=== PATIENT | male | born 1935 | race Two or more races ===

== ENCOUNTER 2018-08-20 14:07 | Observation (INO) | payer MEDICARE ==
[2018-08-20] MEDS ORDERED: PROPOFOL 1,000 MG/100 ML INFUS..BTL IV ONE (14:11)
[2018-08-20] MEDS ORDERED: FENTANYL CITRATE INJ/PF 100 MCG/2 ML AMPUL IV ONE (14:16)
--- NOTE | 2018-08-20 14:17 | ER Document Report ---
ED General - General Stated Complaint: DIFFICULTY BREATHING Time Seen by Provider: 08/20/18 14:15 Notes: Patient is a 83-year-old male with history of bipolar disorder, dementia that presents to the emergency department for chief complaint of combative behavior. History provided by EMS. Patient lives in a long term facility, apparently was rather combative was punching staff and kicking at staff and yelling, when they arrived there were not able to redirect the patient, and per their protocol to give the patient 400 mg of IM ketamine, shortly after this m edication started working, the patient became nearly apneic, was gargling, and at that point he decided to RSI the patient in the field with additional 200 mg of ketamine, and 150 mg of rocuronium. Upon arrival the patient was intubated, sedated and paralyzed. He apparently sustained an abrasion to his left arm earlier in the day, and he has a cast on his right arm, from a previous injury. No other history obtainable at this time. Past Medical History: Bipolar disorder, dementia, history of bladder cancer Past Surgical History: Cataract surgery Social History: Lives at long term facility, no current alcohol or drug use. Family History: Reviewed and noncontributory for presenting illness Allergies: Reviewed, see documented allergy list. REVIEW OF SYSTEMS: Complete review of systems is not obtainable at this time secondary to the patient being intubated. PHYSICAL EXAMINATION: Vital signs reviewed, nursing noted reviewed. GENERAL: Patient is intubated and sedated HEAD: Atraumatic, normocephalic. EYES: Eyes appear normal, sclera anicteric, conjunctiva are normal. PERRLA ENT: nares patent, ET tube in place NECK: supple without lymphadenopathy LUNGS: Breath sounds clear to auscultation bilaterally and equal. No wheezes rales or rhonchi. HEART: Regular rate and rhythm without murmurs ABDOMEN: Soft, nondistended, normoactive bowel sounds. No rebound, guarding, or rigidity. No masses appreciated. EXTREMITIES: No peripheral edema lower extremities, palpable pulses are equal bilaterally, there is a left skin tear noted on the forearm, no active bleeding, and there is a forearm cast noted on the right forearm. NEUROLOGICAL: Patient is intubated and sedated, when sedation did wean off temporarily, patient was moving all extremities. PSYCH: Sedated SKIN: Warm, Dry, normal turgor, pallor noted - Related Data Allergies/Adverse Reactions: No Known Allergies Allergy (Unverified 08/20/18 19:17) Past Medical History - Social History Smoking Status: Unknown if Ever Smoked Family History: Reviewed & Not Pertinent Physical Exam - Vital signs Vitals: Resp Pulse Ox 14 100 08/20/18 14:08 08/20/18 14:08 Course - Re-evaluation Re-evalutation: Patient seen and examined vital signs reviewed. Laboratory data and imaging were ordered as appropriate for the patient's p resenting symptoms and complaint, with consideration of any critical or life threatening conditions that may be associated with their obtained history and exam as noted above. Patient was treated with propofol for sedation, patient was previously intubated by EMS, tube is in good position, lung sounds are equal, patient is also given a single dose of fentanyl, and IV fluid bolusing for transient hypotension. Results were reviewed when available and demonstrated significant anemia with a hemoglobin of 6.7, 2 units of packed red blood cells were ordered. The patient was re-evaluated and was stable on the ventilator. I placed a call to the patient's daughter who I spoke with, regarding his current condition, she states that he was under hospice care, and being transition to it at the nursing facility, she was shocked to hear that he was intubated, and states that that would not be within his wishes, I discussed with her that we could extubate him after weaning him off of sedative medications, which she was agreeable to, I recommended doing this sooner than later, the longer he is on sedatives, the harder will be for him to be taken off the ventilator she is agreeable to this. At this point, the patient was weaned off of his propofol, he was opening eyes spontaneously, he was tucking his chin down, following commands, moving all extremities, the ET tube was removed after deflating the balloon, as well as his NG tube, patient tolerated well, was placed on nasal cannula, was breathing spontaneously. Evaluation was most consistent with acute respiratory failure, behavioral d isturbance and agitation, will admit the patient for observation, resume his medications, and monitor post extubation. Family was agreeable with plan of care. *Note is created using voice recognition software and may contain spelling, syntax or grammatical errors. Laboratory 08/20/18 08/20/1819 14:15 14:15 14:15 WBC 6.5 RBC 2.00 L Hgb 6.7 L Hct 20.2 L MCV 101 H MCH 33.5 H MCHC 33.2 RDW 22.2 H Plt Count 199 Seg Neutrophils % 79.9 H Lymphocytes % 8.0 L Monocytes % 8.4 Eosinophils % 2.9 Basophils % 0.8 Absolute Neutrophils 5.2 Absolute Lymphocytes 0.5 Absolute Monocytes 0.5 Absolute Eosinophils 0.2 Absolute Basophils 0.0 Sodium 142.6 Potassium 4.6 Chloride 112 H Carbon Dioxide 22 Anion Gap 9 BUN 49 H Creatinine 1.35 H Est GFR ( Amer) > 60 Est GFR (Non-Af Amer) 50 L Glucose 190 H POC Glucose Calcium 8.9 Total Bilirubin 1.1 Direct Bilirubin 0.2 Neonat Total Bilirubin Not Reportable Neonat Direct Bilirubin Not Reportable Neonat Indirect Bili Not Reportable AST 21 ALT 25 Alkaline Phosphatase 44 Troponin I < 0.012 Total Protein 6.2 L Albumin 3.6 Urine Color Urine Appearance Urine pH Ur Specific [place] Urine Protein Urine Glucose (UA) Urine Ketones Urine Blood Urine Nitrite Urine Bilirubin Urine Urobilinogen Ur Leukocyte Esterase Urine WBC (Auto) Urine RBC (Auto) U Hyaline Cast (Auto) Urine Bacteria (Auto) Squamous Epi Cells Auto Urine Mucus (Auto) Urine Ascorbic Acid Salicylates < 1.0 L Urine Opiates Screen Urine Methadone Screen Acetaminophen < 10 L Ur Barbiturates Screen Ur Phencyclidine Scrn Ur Amphetamines Screen U Benzodiazepines Scrn Urine Cocaine Screen U Marijuana (THC) Screen Serum Alcohol < 10 Blood Type Blood Type Confirm Antibody Screen Crossmatch 08/20/18 08/20/18 08/20/18 14:15 14:20 14:20 WBC RBC Hgb Hct MCV MCH MCHC RDW Plt Count Seg Neutrophils % Lymphocytes % Monocytes % Eosinophils % Basophils % Absolute Neutrophils Absolute Lymphocytes Absolute Monocytes Absolute Eosinophils Absolute Basophils Sodium Potassium Chloride Carbon Dioxide Anion Gap BUN Creatinine Est GFR ( Amer) Est GFR (Non-Af Amer) Glucose POC Glucose Calcium Total Bilirubin Direct Bilirubin Neonat Total Bilirubin Neonat Direct Bilirubin Neonat Indirect Bili AST ALT Alkaline Phosphatase Troponin I Total Protein Albumin Urine Color YELLOW Urine Appearance SLIGHTLY-CLOUDY Urine pH 5.0 Ur Specific [place] 1.011 Urine Protein 100 H Urine Glucose (UA) NEGATIVE Urine Ketones NEGATIVE Urine Blood SMALL H Urine Nitrite NEGATIVE Urine Bilirubin NEGATIVE Urine Urobilinogen NEGATIVE Ur Leukocyte Esterase NEGATIVE Urine WBC (Auto) 3 Urine RBC (Auto) 3 U Hyaline Cast (Auto) 11 Urine Bacteria (Auto) TRACE Squamous Epi Cells Auto <1 Urine Mucus (Auto) RARE Urine Ascorbic Acid NEGATIVE Salicylates Urine Opiates Screen NEGATIVE Urine Methadone Screen NEGATIVE Acetaminophen Ur Barbiturates Screen NEGATIVE Ur Phencyclidine Scrn NEGATIVE Ur Amphetamines Screen NEGATIVE U Benzodiazepines Scrn NEGATIVE Urine Cocaine Screen NEGATIVE U Marijuana (THC) Screen NEGATIVE Serum Alcohol Blood Type B POSITIVE Blood Type Confirm Antibody Screen NEGATIVE Crossmatch See Detail 08/20/18 08/20/18 15:15 15:20 WBC RBC Hgb Hct MCV MCH MCHC RDW Plt Count Seg Neutrophils % Lymphocytes % Monocytes % Eosinophils % Basophils % Absolute Neutrophils Absolute Lymphocytes Absolute Monocytes Absolute Eosinophils Absolute Basophils Sodium Potassium Chloride Carbon Dioxide Anion Gap BUN Creatinine Est GFR ( Amer) Est GFR (Non-Af Amer) Glucose POC Glucose 193 H Calcium Total Bilirubin Direct Bilirubin Neonat Total Bilirubin Neonat Direct Bilirubin Neonat Indirect Bili AST ALT Alkaline Phosphatase Troponin I Total Protein Albumin Urine Color Urine Appearance Urine pH Ur Specific [place] Urine Protein Urine Glucose (UA) Urine Ketones Urine Blood Urine Nitrite Urine Bilirubin Urine Urobilinogen Ur Leukocyte Esterase Urine WBC (Auto) Urine RBC (Auto) U Hyaline Cast (Auto) Urine Bacteria (Auto) Squamous Epi Cells Auto Urine Mucus (Auto) Urine Ascorbic Acid Salicylates Urine Opiates Screen Urine Methadone Screen Acetaminophen Ur Barbiturates Screen Ur Phencyclidine Scrn Ur Amphetamines Screen U Benzodiazepines Scrn Urine Cocaine Screen U Marijuana (THC) Screen Serum Alcohol Blood Type Blood Type Confirm B POSITIVE Antibody Screen Crossmatch Chest X-Ray 08/20/18 14:16 IMPRESSION: No acute finding. Tubes as described. - Vital Signs Vital signs: Temp Pulse Resp BP Pulse Ox 98.2 F 60 16 136/58 H 100 08/20/18 20:11 08/20/18 20:11 08/20/18 20:11 08/20/18 20:11 08/20/18 20:11 - Laboratory Result Diagrams: 08/20/18 14:15 08/20/18 14:15 Laboratory results interpreted by me: 08/20/18 08/20/18 08/20/18 14:15 14:15 14:15 RBC 2.00 L Hgb 6.7 L Hct 20.2 L MCV 101 H MCH 33.5 H RDW 22.2 H Seg Neutrophils % 79.9 H Lymphocytes % 8.0 L Chloride 112 H BUN 49 H Creatinine 1.35 H Est GFR (Non-Af Amer) 50 L Glucose 190 H POC Glucose Total Protein 6.2 L Urine Protein Urine Blood Salicylates < 1.0 L Acetaminophen < 10 L Crossmatch See Detail 08/20/18 08/20/18 14:20 15:20 RBC Hgb Hct MCV MCH RDW Seg Neutrophils % Lymphocytes % Chloride BUN Creatinine Est GFR (Non-Af Amer) Glucose POC Glucose 193 H Total Protein Urine Protein 100 H Urine Blood SMALL H Salicylates Acetaminophen Crossmatch - EKG Interpretation by Me Additional EKG results interpreted by me: EKG demonstrates sinus rhythm with first-degree AV block, with a ventricular rate of 76 bpm, borderline left axis deviation, QTC 468 ms, PA interval 236 ms, no evidence of acute ischemia in this EKG and no prior for comparison. Critical Care Note - Critical Care Note Total time excluding time spent on procedures (mins): 45 Comments: Critical care time 45 minutes exclusive from separate billable procedures for a patient requiring complex medical decision making, and high potential for cli nical deterioration. In a patient that came in intubated, required vent management, monitoring, and ultimately extubation, after discussion with the patient's daughter. Time spent obtaining history from patient or surrogate, discussions with consultants, development of treatment plan with patient or surrogate, evaluation of patient's response to treatment, examination of patient, ordering and performing treatments and interventions, ordering and review of laboratory studies, re-evaluation of patient's condition, ordering and review of radiographic studies and review of old charts Discharge - Discharge Clinical Impression: Combative behavior Acute respiratory failure Qualifiers: Respiratory failure complication: unspecified whether with hypoxia or hypercapnia Qualified Code(s): J96.00 - Acute respiratory failure, unspecified whether with hypoxia or hypercapnia Anemia Qualifiers: Anemia type: unspecified type Qualified Code(s): D64.9 - Anemia, unspecified Condition: Stable Disposition: ADMITTED OBSERVATION Admitting Provider: Magdi (Hospitalist) Unit Admitted: Telemetry
[2018-08-20] MEDS ORDERED: PROPOFOL 1,000 MG/100 ML INFUS..BTL IV PRN (14:27)
--- NOTE | 2018-08-20 14:46 | RADIOLOGY REPORT (SQ) ---
EXAM DESCRIPTION: CHEST SINGLE VIEW COMPLETED DATE/TIME: 08/20/2018 2:24 pm REASON FOR STUDY: post intubation COMPARISON: None. EXAM PARAMETERS: NUMBER OF VIEWS: One view. TECHNIQUE: Single frontal radiographic view of the chest acquired. RADIATION DOSE: NA LIMITATIONS: None. FINDINGS: LUNGS AND PLEURA: No opacities, masses or pneumothorax. No pleural effusion. MEDIASTINUM AND HILAR STRUCTURES: No masses. Contour normal. HEART AND VASCULAR STRUCTURES: Heart normal in size. Normal vasculature. BONES: No acute findings. HARDWARE: An endotracheal tube has its tip 5 cm above the stu. And NG tube extends to the stomach . OTHER: No other significant finding. IMPRESSION: No acute finding. Tubes as described. TECHNICAL DOCUMENTATION: JOB ID: [id number] [employer]- All Rights Reserved Reading location - IP/workstation name: [email or web address]
[2018-08-20 14:53] LABS: ABSOLUTE EOSINOPHILS # (AUTO) 0.2 10^3/uL (0.0-0.6); ABSOLUTE LYMPHOCYTES (AUTO) 0.5 10^3/uL (0.5-4.7); ABSOLUTE MONOCYTES (AUTO) 0.5 10^3/uL (0.1-1.4); ABSOLUTE NEUT (AUTO) 5.2 10^3/uL (1.7-8.2); BASOPHILS % (AUTO) 0.8 % (0-2); EOSINOPHILS % (AUTO) 2.9 % (0-6); HEMATOCRIT 20.2 % (37.9-51.0); MEAN CORPUSCULAR HEMOGLOBIN 33.5 pg (27.0-33.4); MEAN CORPUSCULAR HGB CONC 33.2 g/dL (32.0-36.0); MEAN CORPUSCULAR VOLUME 101 fl (80-97); MONOCYTES % (AUTO) 8.4 % (3-13); PLATELET COUNT 199 10^3/uL (150-450); RED CELL DISTRIBUTION WIDTH 22.2 % (11.5-14.0); SEGMENTED NEUTROPHILS % (AUTO) 79.9 % (42-78); TOTAL CELLS COUNTED % (AUTO) 100 %; WHITE BLOOD COUNT 6.5 10^3/uL (4.0-10.5)
[2018-08-20 14:57] LABS: APPEARANCE,URINE SLIGHTLY-CLOUDY; BILIRUBIN,URINE NEGATIVE (NEGATIVE); COLOR,URINE YELLOW; GLUCOSE, URINE NEGATIVE (NEGATIVE); KETONES,URINE NEGATIVE (NEGATIVE); LEUKOCYTE ESTERASE,URINE NEGATIVE (NEGATIVE); NITRITE,URINE NEGATIVE (NEGATIVE); PROTEIN,URINE 100 mg/dL (NEGATIVE); URINE SPECIFIC GRAVITY 1.011; UROBILINOGEN,URINE NEGATIVE mg/dL (<2.0)
[2018-08-20 14:57] LABS: HEMOGLOBIN 6.7 g/dL (13.5-17.0)
[2018-08-20] MEDS ORDERED: NORMAL SALINE 250 ML IV PRN (14:58)
[2018-08-20 15:10] LABS: URINE AMPHETAMINES SCREEN NEGATIVE; URINE BARBITURATES SCREEN NEGATIVE; URINE BENZODIAZEPINES SCREEN NEGATIVE; URINE COCAINE SCREEN NEGATIVE; URINE MARIJUANA (THC) SCREEN NEGATIVE; URINE METHADONE SCREEN NEGATIVE; URINE PHENCYCLIDINE SCREEN NEGATIVE
[2018-08-20 15:16] LABS: ALANINE AMINOTRANSFERASE 25 U/L (21-72); ALBUMIN 3.6 g/dL (3.5-5.0); ALKALINE PHOSPHATASE 44 U/L (38-126); ANION GAP 9 (5-19); ASPARTATE AMINO TRANSFERASE 21 U/L (17-59); BILIRUBIN,DIRECT 0.2 mg/dL (0.0-0.4); BILIRUBIN,TOTAL 1.1 mg/dL (0.2-1.3); BLOOD UREA NITROGEN 49 mg/dL (7-20); CALCIUM 8.9 mg/dL (8.4-10.2); CARBON DIOXIDE 22 mmol/L (22-30); CHLORIDE 112 mmol/L (98-107); GLUCOSE 190 mg/dL (75-110); POTASSIUM 4.6 mmol/L (3.6-5.0); SODIUM 142.6 mmol/L (137-145); TOTAL PROTEIN 6.2 g/dL (6.3-8.2)
[2018-08-20 15:18] LABS: ACETAMINOPHEN < 10 ug/mL (10-30); ALCOHOL < 10 mg/dL (NONE DETECTED); SALICYLATE < 1.0 mg/dL (2.0-20.0)
[2018-08-20] MEDS ORDERED: ZIPRASIDONE MESYLATE INJ/PF 20 MG SDV IM PRN (16:53)
[2018-08-20] MEDS ORDERED: ALBUTEROL SULFATE 0.083% NEB 2.5 MG/3 ML AMPUL NEB PRN (16:58)
[2018-08-20] MEDS ORDERED: MAGNESIUM HYDROXIDE SUSP 30 ML UDCUP PO PRN (16:58)
[2018-08-20] MEDS ORDERED: PROMETHAZINE HCL INJ 25 MG/1 ML VIAL IV PRN (16:58)
[2018-08-20] MEDS ORDERED: ACETAMINOPHEN 650 MG SUPP.RECT PR PRN (16:58)
[2018-08-20] MEDS ORDERED: ACETAMINOPHEN 325 MG TABLET PO PRN (16:58)
[2018-08-20] MEDS ORDERED: MAG HYDROX/AL HYDROX/SIMETH SUSP 30 ML UDCUP PO PRN (16:58)
[2018-08-20] MEDS ORDERED: ONDANSETRON HCL INJ/PF 4 MG/2 ML SDV IV PRN (16:58)
--- NOTE | 2018-08-20 17:20 | PDOC H&P ---
History of Present Illness Admission Date/PCP: 08/20/18 16:50 TAYLER PATEL MD Patient complains of: Agitation History of Present Illness: SHAUN PEDRAZA is a 83 year old male with limited past medical history secondary to mental status, but known to have advanced dementia and diabetes who resides at [facility] and is receiving hospice services through [facility]. Per ED provider, EMS services responded to [facility] secondary to patient agitation and combativeness. He was provided ketamine per their protocols which unfortunately resulted in acute respiratory failure. At the time of their interaction, EMS services were unaware that the patient was a DNR/DNI receiving hospice services and so the patient was emergently intubated. Upon arrival to the emergency department, laboratory evaluation demonstrated but known to have hemoglobin of 6.7 (unknown baseline; currently receiving 1 unit PRBC), creatinine of 1.35, BUN 49, nml troponin, negative urinalysis and UDS. EKG reveals NSR w/ 1st degree block; no ST segment changes. CXR was negative for acute findings. Shortly after arrival to the ED, the patient's family members (Daughter/POA) called and relayed that the patient is a DNR/DNI on hospice services. After speaking with the family, the ED provider has successfully extubated the patient. At the time of my exam, the patient is resting comfortably on supplemental oxygen via NC with stable vital signs. He is orientated to self, occasionally answers simple questions/follows one step commands. He is noted to have constricted pupils with nystagmus as expected with ketamine sedations. Past Medical History Cardiac Medical History: Reports: Hypertension Endocrine Medical History: Reports: Diabetes Mellitus Type 2 Psychiatric Medical History: Reports: Bipolar Disorder, Dementia Hematology: Reports: Anemia Social History Information Source: Emergency Med Personnel, [facility] Records Lives with: [facility] Smoking Status: Unknown if Ever Smoked Frequency of Alcohol Use: None - Advance Directive Resuscitation Status: Do Not Resuscitate Family History Family History: Unable to obtain secondary to patient's mental status/sedation Parental Family History Reviewed: No Children Family History Reviewed: No Sibling(s) Family History Reviewed.: No Medication/Allergy Home Medications: Insulin Glargine,Hum.rec.anlog [Lantus Insulin 100 Unit/1 ml 10 ml] 13 unit SQ QHS 08/20/18 Insulin Lispro [Humalog Kwikpen U-100] See Protocol SQ ACHS 08/20/18 Memantine HCl [Namenda 10 mg Tablet] 10 mg PO QHS 08/20/18 Review of Systems ROS unobtainable: Due to mental status Physical Exam Vital Signs: Temp Pulse Resp BP Pulse Ox 14 125/53 L 100 08/20/18 16:41 08/20/18 16:41 08/20/18 16:41 Intake & Output 08/19/18 08/20/18 08/21/18 06:59 06:59 06:59 Intake Total 18 Balance 18 Weight 71 kg General appearance: PRESENT: no acute distress, well-developed, well-nourished Head exam: PRESENT: atraumatic, normocephalic Eye exam: PRESENT: conjunctiva pale, EOMI, nystagmus - as expected w/ ketamine, PERRLA - constricted; as expected w/ ketamine. ABSENT: scleral icterus Mouth exam: PRESENT: moist, tongue midline Neck exam: ABSENT: carotid bruit, JVD, lymphadenopathy, thyromegaly Respiratory exam: PRESENT: rhonchi - slight, symmetrical, unlabored, other - O2 via NC. ABSENT: rales, wheezes Cardiovascular exam: PRESENT: RRR. ABSENT: diastolic murmur, rubs, systolic murmur Pulses: PRESENT: +1 pedal pulses bilateral Vascular exam: PRESENT: pallor GI/Abdominal exam: PRESENT: normal bowel sounds, soft. ABSENT: distended, guarding, mass, organolmegaly, rebound, tenderness Rectal exam: PRESENT: deferred Extremities exam: PRESENT: full ROM. ABSENT: calf tenderness, clubbing, pedal edema Neurological exam: PRESENT: alert, awake, oriented to person, CN II-XII grossly intact, other - Sedated; arousable. ABSENT: motor sensory deficit Skin exam: PRESENT: dry, intact, warm. ABSENT: cyanosis, rash Results Laboratory Results: 08/20/18 14:15 08/20/18 14:15 08/20/18 08/20/18 08/20/18 14:15 14:15 14:15 WBC 6.5 RBC 2.00 L Hgb 6.7 L Hct 20.2 L MCV 101 H MCH 33.5 H MCHC 33.2 RDW 22.2 H Plt Count 199 Seg Neutrophils % 79.9 H Lymphocytes % 8.0 L Monocytes % 8.4 Eosinophils % 2.9 Basophils % 0.8 Absolute Neutrophils 5.2 Absolute Lymphocytes 0.5 Absolute Monocytes 0.5 Absolute Eosinophils 0.2 Absolute Basophils 0.0 Sodium 142.6 Potassium 4.6 Chloride 112 H Carbon Dioxide 22 Anion Gap 9 BUN 49 H Creatinine 1.35 H Est GFR ( Amer) > 60 Est GFR (Non-Af Amer) 50 L Glucose 190 H Calcium 8.9 Total Bilirubin 1.1 AST 21 ALT 25 Alkaline Phosphatase 44 Total Protein 6.2 L Albumin 3.6 Urine Color Urine Appearance Urine pH Ur Specific [place] Urine Protein Urine Glucose (UA) Urine Ketones Urine Blood Urine Nitrite Ur Leukocyte Esterase Urine WBC (Auto) Urine RBC (Auto) Blood Type B POSITIVE Antibody Screen NEGATIVE 08/20/18 14:20 WBC RBC Hgb Hct MCV MCH MCHC RDW Plt Count Seg Neutrophils % Lymphocytes % Monocytes % Eosinophils % Basophils % Absolute Neutrophils Absolute Lymphocytes Absolute Monocytes Absolute Eosinophils Absolute Basophils Sodium Potassium Chloride Carbon Dioxide Anion Gap BUN Creatinine Est GFR ( Amer) Est GFR (Non-Af Amer) Glucose Calcium Total Bilirubin AST ALT Alkaline Phosphatase Total Protein Albumin Urine Color YELLOW Urine Appearance SLIGHTLY-CLOUDY Urine pH 5.0 Ur Specific [place] 1.011 Urine Protein 100 H Urine Glucose (UA) NEGATIVE Urine Ketones NEGATIVE Urine Blood SMALL H Urine Nitrite NEGATIVE Ur Leukocyte Esterase NEGATIVE Urine WBC (Auto) 3 Urine RBC (Auto) 3 Blood Type Antibody Screen 08/20/18 14:15 Troponin I < 0.012 Impressions: Chest X-Ray 08/20/18 14:16 IMPRESSION: No acute finding. Tubes as described. Assessment and Plan - Diagnosis (1) Acute respiratory failure Qualifiers: Respiratory failure complication: unspecified whether with hypoxia or hypercapnia Qualified Code(s): J96.00 - Acute respiratory failure, unspecified whether with hypoxia or hypercapnia Is this a current diagnosis for this admission?: Yes Plan: The patient is now extubated; maintaining oxygen saturations on supplemental oxygen via nasal cannula. Patient will be admitted to the medical floor for observation. Continue supplemental oxygen as needed maintain saturations >88% Scheduled and as needed nebulizer treatments. Patient is a confirmed to DNR/DNI (2) Combative behavior Is this a current diagnosis for this admission?: Yes Plan: In setting of advanced dementia and profound anemia (perhaps hypoxemia) otherwise unclear precipitating factors. Geodon 10 mg IM every 6 hours as needed for agitation. Start Depakote 250 mg twice daily. Start BuSpar 5 mg every morning and 10 mg nightly. Safety precautions. (3) Anemia Qualifiers: Anemia type: unspecified type Qualified Code(s): D64.9 - Anemia, un specified Is this a current diagnosis for this admission?: Yes Plan: Hx of anemia per [facility] records. Unknown baseline Hgb; 6.7 on admission. Patient is currently receiving 1 unit PRBC. Will hold on additional units and further evaluation as patient is now confirmed admitted to [facility] Hospice services. (4) Dementia Is this a current diagnosis for this admission?: Yes Plan: Continue home dose Namenda. Start BuSpar and Depakote as above. Supportive and safety measures. - Time Time Spent with patient: 35 or more minutes Medications reviewed and adjusted accordingly: Yes Anticipated discharge: SNF Within: within 24 hours
--- NOTE | 2018-08-20 19:00 | EKG REPORT ---
SEVERITY:- ABNORMAL ECG - SINUS RHYTHM FIRST DEGREE AV BLOCK : Confirmed by: Jt Reid MD 20-Aug-2018 18:59:47
[2018-08-20] MEDS: IPRATROPIUM/ALBUTEROL 0.5-2.5 MG/3 ML AMPUL NEB SCH (20:26)
[2018-08-20] MEDS: MEMANTINE HCL 10 MG TABLET PO SCH (21:41)
[2018-08-20] MEDS: BUSPIRONE HCL 10 MG TABLET PO SCH (21:41)
[2018-08-20] MEDS: INSULIN GLARGINE,HUM.REC.ANLOG 1,000 UNIT/10 ML VIAL SUBCUT SCH (21:42)
[2018-08-20] MEDS: DIVALPROEX SODIUM 125 MG CAP.SPRINK PO SCH (21:42)
[2018-08-20] MEDS ORDERED: INSULIN GLARGINE,HUM.REC.ANLOG 1,000 UNIT/10 ML VIAL SUBCUT SCH (22:00)
[2018-08-21] MEDS: IPRATROPIUM/ALBUTEROL 0.5-2.5 MG/3 ML AMPUL NEB SCH (08:53)
[2018-08-21] MEDS: DIVALPROEX SODIUM 125 MG CAP.SPRINK PO SCH (09:45)
[2018-08-21] MEDS: BUSPIRONE HCL 10 MG TABLET PO SCH ×2 (10:27→21:27)
--- NOTE | 2018-08-21 18:01 | PDOC PROGRESS REPORT ---
Subjective Progress Note for:: 08/21/18 Subjective:: SHAUN PEDRAZA is a 83 year old male with limited past medical history secondary to mental status, but known to have advanced dementia and diabetes who resides at [facility] and is receiving hospice services through [facility] who was admitted 08/20/2018 for acute respiratory failure secondary to ketamine administration prompting EMS intubation in the field; extubated upon arrival to the emergency department and confirmation of hospice status. Patient is seen on morning rounds. He was found resting in bed comfortably on room air. He wakes easily, is socially appropriate, answers questions although off-topic. He is noted to be oriented to self only. Per nursing he has been calm, cooperative, redirectable, and tolerating his pured diet without difficulty. He appears to be comfortable and is not noted to be in any acute distress. No concerns per nursing at this time. Reason For Visit: ACUTE RESPIRATORY FAILURE, WITH HYPOXIA,ANEMIA Physical Exam Vital Signs: Temp Pulse Resp BP Pulse Ox 98.3 F 65 18 123/41 L 93 08/21/18 15:59 08/21/18 15:59 08/21/18 15:59 08/21/18 15:59 08/21/18 15:59 Intake & Output 08/20/18 08/21/18 08/22/18 06:59 06:59 06:59 Intake Total 18 Output Total 1775 650 Balance -1757 -650 Weight 71 kg General appearance: PRESENT: no acute distress, well-developed, well-nourished Head exam: PRESENT: atraumatic, normocephalic Eye exam: PRESENT: conjunctiva pale, EOMI, PERRLA. ABSENT: scleral icterus Ear exam: PRESENT: normal external ear exam Mouth exam: PRESENT: moist, tongue midline Neck exam: ABSENT: carotid bruit, JVD, lymphadenopathy, thyromegaly Respiratory exam: PRESENT: clear to auscultation pam, symmetrical, unlabored. ABSENT: rales, rhonchi, wheezes Cardiovascular exam: PRESENT: RRR, +S1, +S2. ABSENT: diastolic murmur, rubs, systolic murmur Pulses: PRESENT: normal dorsalis pedis pul Vascular exam: PRESENT: normal capillary refill GI/Abdominal exam: PRESENT: normal bowel sounds, soft. ABSENT: distended, guarding, mass, organolmegaly, rebound, tenderness Rectal exam: PRESENT: deferred Extremities exam: PRESENT: full ROM. ABSENT: calf tenderness, clubbing, pedal edema Neurological exam: PRESENT: alert, awake, oriented to person, CN II-XII grossly intact. ABSENT: oriented to place, oriented to time, oriented to situation, motor sensory deficit Psychiatric exam: PRESENT: appropriate affect, normal mood. ABSENT: homicidal ideation, suicidal ideation Skin exam: PRESENT: dry, intact, warm. ABSENT: cyanosis, rash Results Laboratory Results: 08/20/18 14:15 08/20/18 14:15 08/20/18 14:15 Troponin I < 0.012 Impressions: Chest X-Ray 08/20/18 14:16 IMPRESSION: No acute finding. Tubes as described. Assessment and Plan - Diagnosis (1) Acute respiratory failure Qualifiers: Respiratory failure complication: unspecified whether with hypoxia or hypercapnia Qualified Code(s): J96.00 - Acute respiratory failure, unspecified whether with hypoxia or hypercapnia Is this a current diagnosis for this admission?: Yes Plan: Resolved. The patient is now extubated; maintaining oxygen saturations on supplemental oxygen on room air. Patient will be admitted to the medical floor for observation. Continue supplemental oxygen as needed maintain saturations >88% Continue as needed nebulizer treatments. Patient is a confirmed to DNR/DNI (2) Combative behavior Is this a current diagnosis for this admission?: Yes Plan: In setting of advanced dementia and profound anemia (perhaps hypoxemia) otherwise unclear precipitating factors. Discussed with patient's daughter today; request Depakote be discontinued but agreeable to continuing BuSpar for anxiety/agitation. Resume the patient's home dose citalopram, Namenda, and Aricept. Geodon 10 mg IM every 6 hours as needed for acute agitation. Continue BuSpar 5 mg every morning and 10 mg nightly. Safety precautions. (3) Anemia Qualifiers: Anemia type: unspecified type Qualified Code(s): D64.9 - Anemia, unspecified Is this a current diagnosis for this admission?: Yes Plan: Hx of anemia per [facility] records. Unknown baseline Hgb; 6.7 on admission. Now s/p 1 unit PRBC. Will hold on additional units and further evaluation as patient is now confirmed admitted to [facility] Hospice services. (4) Dementia Is this a current diagnosis for this admission?: Yes Plan: Continue home dose Namenda and Aricept. Start BuSpar as above. Supportive and safety measures. (5) Right forearm fracture Qualifiers: Encounter type: subsequent encounter Is this a current diagnosis for this admission?: Yes Plan: Per the patient's daughter, the patient was seen by Dr. Roman at [facility] for right forearm fracture. Patient was scheduled to have his cast removed on Sunday; however, they have had difficulty getting the patient to [place] for his follow-up appointment due to dementia related anxiety/agitation with travel to appointments. Spoke with FIORDALIZA Stewart at [facility] who has been following the patient postoperatively. She approves removal of the cast with placement of Velcro thumb spica splint and follow-up in 2 to 3 weeks if possible. [facility]/ [facility] today. Patient tolerated well without increased anxiety/agitation. - Time Time Spent with patient: 35 or more minutes Medications reviewed and adjusted accordingly: Yes Anticipated discharge: SNF - Return to [facility] Within: when bed available
[2018-08-21] MEDS: INSULIN GLARGINE,HUM.REC.ANLOG 1,000 UNIT/10 ML VIAL SUBCUT SCH (21:24)
[2018-08-21] MEDS: MEMANTINE HCL 10 MG TABLET PO SCH (21:26)
[2018-08-21] MEDS ORDERED: (PENDING PHARMACY ID) (Citalopram Hydrobromide [Celexa 40 Mg Tablet] 40 MG) PO SCH (22:00)
[2018-08-21] MEDS ORDERED: (PENDING PHARMACY ID) (Donepezil Hcl [Aricept] 10 MG) PO SCH (22:00)
[2018-08-21] MEDS ORDERED: DONEPEZIL HCL 5 MG TABLET PO SCH (22:00)
[2018-08-21] MEDS ORDERED: CITALOPRAM HYDROBROMIDE 20 MG TABLET PO SCH (22:00)
[2018-08-22] MEDS: BUSPIRONE HCL 10 MG TABLET PO SCH (08:25)
--- NOTE | 2018-08-22 09:14 | PDOC TRANSFER SUMMARY ---
General - Admit/Disc Date/PCP Admission Date/Primary Care Provider: 08/20/18 16:50 TAYLER PATEL MD Discharge Date: 08/22/18 - Discharge Diagnosis (1) Acute respiratory failure Is this a current diagnosis for this admission?: Yes Summary: Resolved; secondary to ketamine administration. The patient is now extubated; maintaining oxygen saturations on supplemental oxygen on room air. (2) Combative behavior Is this a current diagnosis for this admission?: Yes Summary: Resolved. In setting of advanced dementia and profound anemia (perhaps hypoxemia) otherwise unclear precipitating factors. Discussed with patient's daughter yesterday; request Depakote be discontinued (secondary to concern regarding sedation and increased fall risk)but agreeable to continuing BuSpar for anxiety/agitation. Continue the patient's home dose citalopram, Namenda, and Aricept. Continue BuSpar 5 mg every morning and 10 mg nightly. (3) Anemia Is this a current diagnosis for this admission?: Yes Summary: Hx of anemia per [facility] records. Unknown baseline Hgb; 6.7 on admission. No obvious source/active bleeding. Now s/p 1 unit PRBC. No further evaluation as patient is confirmed admitted to [facility] Hospice services. (4) Dementia Is this a current diagnosis for this admission?: Yes Summary: Continue home dose Namenda and Aricept. Start BuSpar as above. Supportive and safety measures. (5) Right forearm fracture Is this a current diagnosis for this admission?: Yes Summary: Per the patient's daughter, the patient was seen by Dr. Roman at [facility] for right forearm fracture. Patient was scheduled to have his cast removed last Sunday; however, they have had difficulty getting the patient to [place] for his follow-up appointment due to dementia related anxiety/agitation with travel to appointments. Spoke with FIORDALIZA Stewart at [facility] who has been following the patient postoperatively. She approved removal of the cast with placement of Velcro thumb spica splint and follow-up in 2 to 3 weeks if possible. Patient tolerated well without increased anxiety/agitation. - Additional Information Resuscitation Status: Do Not Resuscitate Discharge Diet: As Tolerated Discharge Activity: Activity As Tolerated Prescriptions: Buspirone HCl [Buspar 10 mg Tablet] 5 mg PO ASDIR PRN #45 tablet PRN Reason: Citalopram Hydrobromide [Celexa 40 mg Tablet] 40 mg PO QHS #30 tablet Donepezil HCl [Aricept] 10 mg PO QHS #30 tablet Memantine HCl [Namenda 10 mg Tablet] 10 mg PO QHS #30 tablet Home Medications: Calcium Carbonate [Calcium] 500 mg PO DAILY 08/20/18 Ferrous Sulfate [Feosol 325 mg Tablet] 325 mg PO BID 08/20/18 Insulin Glargine,Hum.rec.anlog [Lantus Insulin 100 Unit/1 ml 10 ml] 13 unit SQ QHS 08/20/18 Insulin Lispro [Humalog Kwikpen U-100] See Protocol SQ ACHS 08/20/18 Lactobacillus Acidophilus [Acidophilus] 1 cap PO DAILY 08/20/18 Multivitamin [Multiple Vitamins] 1 tab PO DAILY 08/20/18 Acetaminophen [Tylenol 325 mg Tablet] 650 mg PO Q4HP PRN tablet 08/22/18 Buspirone HCl [Buspar 10 mg Tablet] 5 mg PO ASDIR PRN #45 tablet 08/22/18 Citalopram Hydrobromide [Celexa 40 mg Tablet] 40 mg PO QHS #30 tablet 08/22/18 Donepezil HCl [Aricept] 10 mg PO QHS #30 tablet 08/22/18 Memantine HCl [Namenda 10 mg Tablet] 10 mg PO QHS #30 tablet 08/22/18 History of Present Illness Admission Date/PCP: 08/20/18 16:50 TAYLER PATEL MD History of Present Illness: SHAUN PEDRAZA is a 83 year old male with limited past medical history secondary to mental status, but known to have advanced dementia and diabetes who resides at [facility] and is receiving hospice services through [facility]. Per ED provider, EMS services responded to [facility] secondary to patient agitation and combativeness. He was provided ketamine per their protocols which unfortunately resulted in acute respiratory failure. At the time of their interaction, EMS services were unaware that the patient was a DNR/DNI receiving hospice services and so the patient was emergently intubated. Upon arrival to the emergency department, laboratory evaluation demonstrated but known to have hemoglobin of 6.7 (unknown baseline; currently receiving 1 unit PRBC), creatinine of 1.35, BUN 49, nml troponin, negative urinalysis and UDS. EKG reveals NSR w/ 1st degree block; no ST segment changes. CXR was negative for acute findings. Shortly after arrival to the ED, the patient's family members (Daughter/POA) called and relayed that the patient is a DNR/DNI on hospice services. After speaking with the family, the ED provider has successfully extubated the patient. At the time of my exam, the patient is resting comfortably on supplemental oxygen via NC with stable vital signs. He is orientated to self, occasionally answers simple questions/follows one step commands. He is noted to have constricted pupils with nystagmus as expected with ketamine sedations. Physical Exam Vital Signs: Temp Pulse Resp BP Pulse Ox 98.4 F 55 L 16 144/59 H 96 08/22/18 08:00 08/22/18 08:00 08/22/18 08:00 08/22/18 08:00 08/21/18 19:39 Intake & Output 08/21/18 08/22/18 08/23/18 06:59 06:59 06:59 Intake Total 18 540 Output Total 1775 1600 Balance -1757 -1060 Weight 71 kg 71 kg General appearance: PRESENT: no acute distress, cooperative, well-developed, well-nourished Head exam: PRESENT: atraumatic, normocephalic Eye exam: PRESENT: conjunctiva pink, EOMI, PERRLA. ABSENT: scleral icterus Ear exam: PRESENT: normal external ear exam Mouth exam: PRESENT: moist, tongue midline Neck exam: ABSENT: carotid bruit, JVD, lymphadenopathy, thyromegaly Respiratory exam: PRESENT: clear to auscultation pam, symmetrical, unlabored. ABSENT: rales, rhonchi, wheezes Cardiovascular exam: PRESENT: RRR, +S1, +S2. ABSENT: diastolic murmur, rubs, systolic murmur Pulses: PRESENT: normal dorsalis pedis pul Vascular exam: PRESENT: normal capillary refill GI/Abdominal exam: PRESENT: normal bowel sounds, soft. ABSENT: distended, guarding, mass, organolmegaly, rebound, tenderness Rectal exam: PRESENT: deferred Extremities exam: PRESENT: full ROM. ABSENT: calf tenderness, clubbing, pedal edema Neurological exam: PRESENT: alert, awake, oriented to person, CN II-XII grossly intact, other - Socially appropriate; smiled, nodded head yes, but does not answer questions. ABSENT: oriented to place, oriented to time, oriented to situation, motor sensory deficit Psychiatric exam: PRESENT: appropriate affect, normal mood. ABSENT: homicidal ideation, suicidal ideation Skin exam: PRESENT: dry, intact, warm. ABSENT: cyanosis, rash Results Laboratory Results: 08/20/18 14:15 08/20/18 14:15 08/20/18 14:15 Troponin I < 0.012 Impressions: Chest X-Ray 08/20/18 14:16 IMPRESSION: No acute finding. Tubes as described. Transfer Plan - Disposition Transfer Plan: Discharge to SNF; patient is established resident at [facility]. - Time Spent with Patient Time spent with patient: Less than 30 Minutes Qualifiers - * PATIENT BEING DISCHARGED WITH ANY OF THE FOLLOWING DIAGNOSIS: No Acute Heart Failure Is this a Heart Failure Patient?: No Plan Discharge Plan: Discharge to SNF; patient is established resident at [facility]. Follow up with [facility] in 2-3 weeks if possible; continue to wear velcro wrist splint until follow up appointment. Time Spent: Greater than 30 Minutes
[2018-08-22 13:00] VITALS: BP 157/57
== END 2018-08-22 13:47 ==
LOC: ER 14:07 → EH 16:50 → 4N 18:51
PROVIDERS: ADMIT Internal Medicine; ATTEND Internal Medicine
PROC: 0BH17EZ Insertion of Endotracheal Airway into Trachea, Via Natural or Artificial Opening (ICD-10-PCS; principal; 2018-08-20)
DX: J96.00 Acute respiratory failure, unspecified whether with hypoxia or hypercapnia (principal); T41.295A Adverse effect of other general anesthetics, initial encounter; Y92.129 Unspecified place in nursing home as the place of occurrence of the external cause; R45.1 Restlessness and agitation; D64.9 Anemia, unspecified; S52.91XD Unspecified fracture of right forearm, subsequent encounter for closed fracture with routine healing; Z66 Do not resuscitate; I10 Essential (primary) hypertension; E11.9 Type 2 diabetes mellitus without complications; F31.9 Bipolar disorder, unspecified; F03.90 Unspecified dementia, unspecified severity, without behavioral disturbance, psychotic disturbance, mood disturbance, and anxiety; Z79.4 Long term (current) use of insulin; Z79.899 Other long term (current) drug therapy
CPT/HCPCS: 36415; 36430; 71045; 80053; 80307; 81001; 82962; 84484; 85025; 86850; 86900; 86901; 86920; 93005; 93010; 94640; 94660; 99291; J2550; J2704; J3010; J3486; J7620; L3908; P9016

== ENCOUNTER 2019-03-22 09:10 | Observation (INO) | payer MEDICAID, MEDICARE ==
[2019-03-22 09:44] LABS: ABSOLUTE BASOPHILS # (AUTO) 0.2 10^3/uL (0.0-0.2); ABSOLUTE EOSINOPHILS # (AUTO) 0.3 10^3/uL (0.0-0.6); ABSOLUTE LYMPHOCYTES (AUTO) 0.9 10^3/uL (0.5-4.7); ABSOLUTE MONOCYTES (AUTO) 0.8 10^3/uL (0.1-1.4); BASOPHILS % (AUTO) 2.3 % (0-2); EOSINOPHILS % (AUTO) 3.5 % (0-6); LYMPHOCYTES % (AUTO) 9.7 % (13-45); MEAN CORPUSCULAR HEMOGLOBIN 34.6 pg (27.0-33.4); MEAN CORPUSCULAR HGB CONC 33.6 g/dL (32.0-36.0); MEAN CORPUSCULAR VOLUME 103 fl (80-97); MONOCYTES % (AUTO) 8.4 % (3-13); PLATELET COUNT 209 10^3/uL (150-450); RED BLOOD COUNT 2.24 10^6/uL (4.35-5.55); RED CELL DISTRIBUTION WIDTH 20.7 % (11.5-14.0); SEGMENTED NEUTROPHILS % (AUTO) 76.1 % (42-78); TOTAL CELLS COUNTED % (AUTO) 100 %; WHITE BLOOD COUNT 9.2 10^3/uL (4.0-10.5)
[2019-03-22 09:47] LABS: HEMOGLOBIN 7.7 g/dL (13.5-17.0)
[2019-03-22 09:57] LABS: ALBUMIN 3.2 g/dL (3.5-5.0); ALKALINE PHOSPHATASE 68 U/L (38-126); ANION GAP 5 (5-19); ASPARTATE AMINO TRANSFERASE 18 U/L (17-59); BILIRUBIN,DIRECT 0.1 mg/dL (0.0-0.4); BILIRUBIN,TOTAL 0.8 mg/dL (0.2-1.3); BLOOD UREA NITROGEN 39 mg/dL (7-20); CALCIUM 9.1 mg/dL (8.4-10.2); CARBON DIOXIDE 30 mmol/L (22-30); CHLORIDE 105 mmol/L (98-107); GLUCOSE 225 mg/dL (75-110); POTASSIUM 4.3 mmol/L (3.6-5.0); TOTAL PROTEIN 6.6 g/dL (6.3-8.2)
--- NOTE | 2019-03-22 12:39 | ER Document Report ---
Entered by JACINTA RAMÍREZ SCRIBE 03/22/19 1208 Acting as scribe for:JUDITH ACEVEDO IV, MD ED General - General Chief Complaint: Anemia Stated Complaint: WEAKNESS Primary Care Provider: TAYLER PATEL MD [Primary Care Provider] - Follow up as needed Mode of Arrival: Medic Information source: Patient Cannot obtain history due to: Other - Poor historian Notes: This is an 84-year-old male patient that was sent in from his ursing home ([facility]) for concerns of low hemoglobin. Patient has had to be transfused in the past. Patient is alert and pleasant but is unable to provide any real history. TRAVEL OUTSIDE OF THE [place] IN LAST 30 DAYS: No - Related Data Allergies/Adverse Reactions: No Known Allergies Allergy (Unverified 08/20/18 19:17) Home Medications: calcium carbonate. ferrous sulfate. insulin gargline. insulin lispro. lactobacillus acidophilus. multivitamin. acetaminophen. busirone. citalopram. donepezil. memantine Past Medical History - General Information source: [facility] Records Cannot obtain history due to: Other - poor historian - Social History Smoking Status: Unknown if Ever Smoked Frequency of alcohol use: None Drug Abuse: None Lives with: Family Family History: Reviewed & Not Pertinent Patient has suicidal ideation: No Patient has homicidal ideation: No - Past Medical History Cardiac Medical History: Reports: Hx Hypertension Endocrine Medical History: Reports: Hx Diabetes Mellitus Type 2 Psychiatric Medical History: Reports: Hx Bipolar Disorder, Hx Dementia, Hx Schizophrenia Review of Systems - Review of Systems -: Yes ROS unobtainable due to patient's medical condition Physical Exam - Vital signs Vitals: Temp Pulse Resp BP Pulse Ox 98.1 F 66 20 128/59 H 85 L 03/22/19 09:35 03/22/19 09:35 03/22/19 09:35 03/22/19 09:35 03/22/19 09:35 - Notes Notes: Physical Exam: General: Alert, very pale nail beds and conjunctiva. HEENT: Normocephalic. Atraumatic. PERRL. Extraocular movements intact. Oropharynx clear. Neck: Supple. Non-tender. Respiratory: No respiratory distress. Clear and equal breath sounds bilaterally. Cardiovascular: Holosystolic 3/6 murmur, regular rate and rhythm. Abdominal: Normal Inspection. Non-tender. No distension. Normal Bowel Sounds. Rectal: Performed with rn internship in attendance, dark melanotic stool, bedside [id number] Hemoccult positive. Back: No gross abnormalities. Extremities: Moves all four extremities. Upper extremities: Normal inspection. Normal ROM. Lower extremities: Normal inspection. No edema. Normal ROM. Neurological: Normal cognition. AAOx4. Normal speech. Psychological: Normal affect. Normal Mood. Skin: Warm. Dry. Pallor. Course - Vital Signs Vital signs: Temp Pulse Resp BP Pulse Ox 98.1 F 66 20 128/59 H 85 L 03/22/19 09:35 03/22/19 09:35 03/22/19 09:35 03/22/19 09:35 03/22/19 09:35 - Laboratory Result Diagrams: 03/22/19 09:25 03/22/19 09:25 Laboratory results interpreted by me: 03/22/19 03/22/19 03/22/19 09:25 09:25 14:25 RBC 2.24 L Hgb 7.7 L Hct 23.0 L MCV 103 H MCH 34.6 H RDW 20.7 H Lymph % (Auto) 9.7 L Baso % (Auto) 2.3 H BUN 39 H Creatinine 1.70 H Est GFR ( Amer) 47 L Est GFR (MDRD) Non-Af 38 L Glucose 225 H POC Glucose 229 H Albumin 3.2 L - EKG Interpretation by Me Additional EKG results interpreted by me: 03/22/19 14:26 EKG obtained on 03/22/2019 at 1350 hrs. was interpreted by this MD. Findings: Sinus rhythm, rate 67, first-degree AV block is present, P waves proceed QRS complexes, QRS complexes appear narrow, there are no patterns of ST segment elevation or depression to suggest acute myocardial infarction or ischemia. Impression sinus rhythm with first-degree AV block and nonspecific ST segments. - Consults DR. RUTH Time consulted: 14:24 Reason for consultation: 03/22/19 14:24 ANEMIA Consulted provider: will come to ER Discharge - Discharge Clinical Impression: Anemia Qualifiers: Anemia type: unspecified type Qualified Code(s): D64.9 - Anemia, unspecified Condition: Good Disposition: ADMITTED OBSERVATION Admitting Provider: Nelda (Hospitalist) Unit Admitted: Medical Floor Referrals: TAYLER PATEL MD [Primary Care Provider] - Follow up as needed I personally performed the services described in the documentation, reviewed and edited the documentation which was dictated to the scribe in my presence, and it accurately records my words and actions.
--- NOTE | 2019-03-22 13:54 | RADIOLOGY REPORT (SQ) ---
EXAM DESCRIPTION: CHEST SINGLE VIEW COMPLETED DATE/TIME: 03/22/2019 1:30 pm REASON FOR STUDY: dyspnea COMPARISON: AP chest 08/20/2018 EXAM PARAMETERS: NUMBER OF VIEWS: One view. TECHNIQUE: Single frontal radiographic view of the chest acquired. RADIATION DOSE: NA LIMITATIONS: None. FINDINGS: LUNGS AND PLEURA: Minimal bandlike atelectasis left lung base. Lungs are otherwise grossl y clear. No pleural effusion. No pneumothorax. MEDIASTINUM AND HILAR STRUCTURES: No masses. Contour normal. HEART AND VASCULAR STRUCTURES: Heart normal in size. Normal vasculature. BONES: No acute findings. HARDWARE: None in the chest. OTHER: No other significant finding. IMPRESSION: Minimal left basilar atelectasis TECHNICAL DOCUMENTATION: JOB ID: [id number] [employer]- All Rights Reserved Reading location - IP/workstation name: [email or web address]
--- NOTE | 2019-03-22 13:56 | EKG REPORT ---
SEVERITY:- ABNORMAL ECG - SINUS RHYTHM FIRST DEGREE AV BLOCK : Confirmed by: Jt Reid MD 22-Mar-2019 13:56:18
[2019-03-22] MEDS ORDERED: NORMAL SALINE 250 ML IV PRN ×2 (15:00)
[2019-03-22] MEDS: NORMAL SALINE 1000 ML 1,000 ML IV PRN ×2 (16:20→21:54)
--- NOTE | 2019-03-22 17:10 | PDOC H&P ---
History of Present Illness Admission Date/PCP: TAYLER DUNBAR MD Patient complains of: anemia History of Present Illness: SHAUN PEDRAZA is a 84 year old male with a past medical history of severe dementia, history of diabetes, history of bladder cancer and chronic recurrent anemia requiring blood transfusions who was sent by Dr. Dunbar to [facility] for blood transfusion from [facility] due to low hemoglobin of 7.7. Upon encounter at bedside, patient appears comfortable. He is a very poor historian. Called patient's daughter/DPOA (Dorinda). Patient does not complain of acute symptoms. No reported hematemesis, melena or hematochezia. She says that patient was previously on hospice service at [facility]. However, he was subsequently discharged from hospice as his bladder cancer was deemed to be stable and in remission. He does not have a history of known CAD, [place], prior stenting or CABG. She says patient is a DNR/DNI. She does not want to pursue any aggressive or invasive procedure/intervention including an EGD or colonoscopy. Past Medical History Cardiac Medical History: Reports: Hypertension Endocrine Medical History: Reports: Diabetes Mellitus Type 2 Psychiatric Medical History: Reports: Bipolar Disorder, Dementia Hematology: Reports: Anemia Social History Lives with: Family Smoking Status: Unknown if Ever Smoked Frequency of Alcohol Use: None Family History Family History: Reviewed & Not Pertinent Parental Family History Reviewed: Yes - No premature CAD Children Family History Reviewed: No Sibling(s) Family History Reviewed.: No Medication/Allergy Allergies/Adverse Reactions: No Known Allergies Allergy (Unverified 08/20/18 19:17) Physical Exam Vital Signs: Temp Pulse Resp BP Pulse Ox 98.1 F 66 20 128/59 H 85 L 03/22/19 09:35 03/22/19 09:35 03/22/19 09:35 03/22/19 09:35 03/22/19 09:35 General appearance: PRESENT: no acute distress, well-developed, well-nourished Head exam: PRESENT: atraumatic, normocephalic Eye exam: PRESENT: conjunctiva pale, EOMI. ABSENT: scleral icterus Ear exam: PRESENT: normal external ear exam Mouth exam: PRESENT: moist, tongue midline Neck exam: ABSENT: carotid bruit, JVD, lymphadenopathy, thyromegaly Respiratory exam: PRESENT: clear to auscultation pam. ABSENT: rales, rhonchi, wheezes Cardiovascular exam: PRESENT: RRR. ABSENT: diastolic murmur, rubs, systolic murmur Pulses: PRESENT: normal dorsalis pedis pul GI/Abdominal exam: PRESENT: normal bowel sounds, soft. ABSENT: distended, guarding, mass, organolmegaly, rebound, tenderness Rectal exam: PRESENT: deferred Neurological exam: PRESENT: alert, awake Results Laboratory Results: 03/22/19 09:25 03/22/19 09:25 03/22/19 03/22/19 03/22/19 09:25 09:25 09:25 WBC 9.2 RBC 2.24 L Hgb 7.7 L Hct 23.0 L MCV 103 H MCH 34.6 H MCHC 33.6 RDW 20.7 H Plt Count 209 Seg Neutrophils % 76.1 Sodium 140.3 Potassium 4.3 Chloride 105 Carbon Dioxide 30 Anion Gap 5 BUN 39 H Creatinine 1.70 H Est GFR ( Amer) 47 L Glucose 225 H Calcium 9.1 Total Bilirubin 0.8 AST 18 Alkaline Phosphatase 68 Total Protein 6.6 Albumin 3.2 L Blood Type B POSITIVE Antibody Screen NEGATIVE Impressions: Chest X-Ray 03/22/19 12:33 IMPRESSION: Minimal left basilar atelectasis Assessment and Plan - Diagnosis (1) Acute on chronic anemia Is this a current diagnosis for this admission?: Yes Plan: Dr. Dunbar has requested 2 u of pRBC. Patient's daughter says that his baseline hemoglobin is around 7.5. She does say that he tends to fall at the [facility] and is wondering if this was related to his low hemoglobin. As mentioned, patient does not have a history of known CAD, [place], stenting or CABG. I believe 1 unit of PRBC will suffice at this time. We will reassess repeat CBC tomorrow. FOBT is positive. Will check an anemia panel but will defer EGD and colonoscopy after discussion with the POA. (2) Dementia Is this a current diagnosis for this admission?: Yes Plan: At baseline. (3) Acute on chronic renal failure Is this a current diagnosis for this admission?: Yes - Time Time Spent with patient: 25-34 minutes
--- NOTE | 2019-03-22 17:12 | ADVANCED CARE ---
- Diagnosis (1) Acute on chronic anemia Diagnosis Current: Yes (2) Acute on chronic renal failure Diagnosis Current: Yes (3) Dementia Diagnosis Current: Yes Resuscitation Status: Do Not Resuscitate Discussion: Called patient's daughter/DPOA (Dorinda). She says patient is a DNR/DNI and does not prefer to receive chest compressions, defibrillation or mechanical ventilation if the need arises. She says that he was previously under hospice but was discharged from hospice as his bladder cancer was deemed stable and was deemed to be in remission and he had a longer survival as previously britt mendoza
[2019-03-22 17:52] LABS: ABSOLUTE RETICS # 0.043 10^6/uL (0.028-0.122); RETICULOCYTE COUNT (AUTO) 1.92 % (0.66-2.85)
[2019-03-22 18:04] LABS: IRON(TIBC) 79.9 ug/dL (49-181)
[2019-03-22] MEDS ORDERED: LORAZEPAM INJ 2 MG/1 ML VIAL IV ONE (18:40)
[2019-03-22 19:14] LABS: FOLATE > 20.00 ng/mL (>2.76)
[2019-03-22] MEDS ORDERED: DEXTROSE 40% GEL 15 GM TUBE X 2 PO PRN (23:30)
[2019-03-22] MEDS ORDERED: DEXTROSE 50%-WATER SYRINGE 25 GM/50 ML DOSE IV PRN (23:30)
[2019-03-22] MEDS ORDERED: DEXTROSE 40% GEL 15 GM TUBE PO PRN (23:30)
[2019-03-22] MEDS ORDERED: DEXTROSE 50%-WATER SYRINGE 12.5 GM/25 ML DOSE IV PRN (23:30)
[2019-03-22] MEDS ORDERED: GLUCAGON,HUMAN RECOMB 1 MG INJ IM PRN (23:30)
[2019-03-23] MEDS: INSULIN LISPRO 100 UNIT/ML 3 ML VIAL SUBCUT SCH ×4 (00:04→17:56)
[2019-03-23 04:45] LABS: ABSOLUTE BASOPHILS # (AUTO) 0.1 10^3/uL (0.0-0.2); ABSOLUTE EOSINOPHILS # (AUTO) 0.3 10^3/uL (0.0-0.6); ABSOLUTE LYMPHOCYTES (AUTO) 0.9 10^3/uL (0.5-4.7); ABSOLUTE MONOCYTES (AUTO) 0.8 10^3/uL (0.1-1.4); ABSOLUTE NEUT (AUTO) 8.1 10^3/uL (1.7-8.2); BASOPHILS % (AUTO) 1.3 % (0-2); EOSINOPHILS % (AUTO) 3.2 % (0-6); HEMATOCRIT 25.5 % (37.9-51.0); HEMOGLOBIN 8.9 g/dL (13.5-17.0); LYMPHOCYTES % (AUTO) 9.1 % (13-45); MEAN CORPUSCULAR HEMOGLOBIN 33.7 pg (27.0-33.4); MEAN CORPUSCULAR HGB CONC 34.8 g/dL (32.0-36.0); MONOCYTES % (AUTO) 8.1 % (3-13); PLATELET COUNT 181 10^3/uL (150-450); RED BLOOD COUNT 2.63 10^6/uL (4.35-5.55); RED CELL DISTRIBUTION WIDTH 23.4 % (11.5-14.0); SEGMENTED NEUTROPHILS % (AUTO) 78.3 % (42-78); TOTAL CELLS COUNTED % (AUTO) 100 %; WHITE BLOOD COUNT 10.4 10^3/uL (4.0-10.5)
[2019-03-23 04:57] LABS: BLOOD UREA NITROGEN 37 mg/dL (7-20); CALCIUM 8.8 mg/dL (8.4-10.2); POTASSIUM 3.6 mmol/L (3.6-5.0)
[2019-03-23 05:06] LABS: MEAN CORPUSCULAR VOLUME 97 fl (80-97)
[2019-03-23 05:09] LABS: CARBON DIOXIDE 26 mmol/L (22-30); CHLORIDE 109 mmol/L (98-107)
[2019-03-23 05:19] LABS: ANION GAP 7 (5-19); GLUCOSE 58 mg/dL (75-110)
--- NOTE | 2019-03-23 12:18 | PDOC TRANSFER SUMMARY ---
Impression - Admit/DC Date/PCP Admission Date/Primary Care Provider: 03/22/19 15:07 TAYLER DUNBAR MD Discharge Date: 03/23/19 - Discharge Diagnosis (1) Acute on chronic anemia Is this a current diagnosis for this admission?: Yes (2) Acute on chronic renal failure Is this a current diagnosis for this admission?: Yes (3) Dementia Is this a current diagnosis for this admission?: Yes - Additional Information Resuscitation Status: Do Not Resuscitate Referrals: [facility] [Outside] TAYLER DUNBAR MD [Primary Care Provider] - Follow up as needed Home Medications: Acetaminophen [Tylenol] 650 mg PO Q4HP PRN 03/23/19 Ascorbic Acid [Vitamin C 500 mg Tablet] 500 mg PO BID 03/23/19 Buspirone HCl [Buspar 10 mg Tablet] 10 mg PO QHS 03/23/19 Buspirone HCl [Buspar 5 mg Tablet] 5 mg PO QAM 03/23/19 Calcium Carbonate [Calcium] 500 mg PO DAILY 03/23/19 Citalopram Hydrobromide [Celexa 20 mg Tablet] 20 mg PO QHS 03/23/19 Donepezil HCl [Aricept] 10 mg PO QHS 03/23/19 Ferrous Sulfate [Feosol 325 mg Tablet] 325 mg PO BID 03/23/19 Guaifenesin [Tussin] 10 ml PO Q4HP PRN 03/23/19 Insulin Glargine,Hum.rec.anlog [Lantus Insulin 100 Unit/1 ml 10 ml] 13 unit SUBCUT QHS 03/23/19 Lorazepam [Ativan 0.5 mg Tablet] 0.5 mg PO Q8HP PRN 03/23/19 Lorazepam [Ativan Inj 2 mg/1 ml Vial] 1 mg IM Q8HP PRN 03/23/19 Memantine HCl [Namenda] 5 mg PO BID 03/23/19 Multivitamin [Daily Multiple Vitamin] 1 each PO DAILY 03/23/19 History of Present Illiness History of Present Illness: SHAUN PEDRAZA is a 84 year old male with a past medical history of severe dementia, history of diabetes, history of bladder cancer and chronic recurrent anemia requiring blood transfusions who was sent by Dr. Dunbar to [facility] for blood transfusion from [facility] due to low hemoglobin of 7.7. Upon encounter at bedside, patient appears comfortable. He is a very poor historian. Called patient's daughter/DPOA (Dorinda). Patient does not complain of acute symptoms. No reported hematemesis, melena or hematochezia. She says that patient was previously on hospice service at [facility]. However, he was subsequently discharged from hospice as his bladder cancer was deemed to be stable and in remission. He does not have a history of known CAD, GA, prior stenting or CABG. She says patient is a DNR/DNI. She does not want to pursue any aggressive or invasive procedure/intervention including an EGD or colonoscopy. Hospital Course Hospital Course: Patient's daughter says that his baseline hemoglobin is around 7.5. As mentioned, patient does not have a history of known CAD, GA, stenting or CABG. he was transfused 1 unit of packed RBC and hemoglobin went up to 8.9. Anemia work-up was only remarkable for positive FOBT. He also appeared to have TIARRA on top of CKD. He was given IV fluids and creatinine did improve. Does have poor oral intake is end-stage dementia. As mentioned, family has expressed they do not want to pursue any EGD or colonoscopy. Patient is at his baseline and will be discharged back to [facility]. Physical Exam Vital Signs: Temp Pulse Resp BP Pulse Ox 97.7 F 65 16 150/62 H 98 03/23/19 08:11 03/23/19 08:11 03/23/19 08:11 03/23/19 08:11 03/23/19 08:11 Intake & Output 03/22/19 03/23/19 03/24/19 06:59 06:59 06:59 Intake Total 1088 Balance 1088 Weight 150 lb 5.684 oz General appearance: PRESENT: no acute distress, well-developed, well-nourished Head exam: PRESENT: atraumatic, normocephalic Eye exam: PRESENT: conjunctiva pink, EOMI, PERRLA. ABSENT: scleral icterus Ear exam: PRESENT: normal external ear exam Mouth exam: PRESENT: moist, tongue midline Neck exam: ABSENT: carotid bruit, JVD, lymphadenopathy, thyromegaly Respiratory exam: PRESENT: clear to auscultation pam. ABSENT: rales, rhonchi, wheezes Cardiovascular exam: PRESENT: RRR. ABSENT: diastolic murmur, rubs, systolic mur mur Pulses: PRESENT: normal dorsalis pedis pul GI/Abdominal exam: PRESENT: normal bowel sounds, soft. ABSENT: distended, guarding, mass, organolmegaly, rebound, tenderness Rectal exam: PRESENT: deferred Extremities exam: PRESENT: full ROM. ABSENT: calf tenderness, clubbing, pedal edema Neurological exam: PRESENT: alert, awake, CN II-XII grossly intact. ABSENT: motor sensory deficit Results Laboratory Results: WBC 10.4 10^3/uL (4.0-10.5) 03/23/19 03:58 RBC 2.63 10^6/uL (4.35-5.55) L 03/23/19 03:58 Hgb 8.9 g/dL (13.5-17.0) L 03/23/19 03:58 Hct 25.5 % (37.9-51.0) L 03/23/19 03:58 MCV 97 fl (80-97) D 03/23/19 03:58 MCH 33.7 pg (27.0-33.4) H 03/23/19 03:58 MCHC 34.8 g/dL (32.0-36.0) 03/23/19 03:58 RDW 23.4 % (11.5-14.0) H 03/23/19 03:58 Plt Count 181 10^3/uL (150-450) 03/23/19 03:58 Lymph % (Auto) 9.1 % (13-45) L 03/23/19 03:58 [place] % (Auto) 8.1 % (3-13) 03/23/19 03:58 Eos % (Auto) 3.2 % (0-6) 03/23/19 03:58 Baso % (Auto) 1.3 % (0-2) 03/23/19 03:58 Reticulocyte # 0.043 10^6/uL (0.028-0.122) 03/22/19 09:25 Absolute Neuts (auto) 8.1 10^3/uL (1.7-8.2) 03/23/19 03:58 Absolute Lymphs (auto) 0.9 10^3/uL (0.5-4.7) 03/23/19 03:58 Absolute Monos (auto) 0.8 10^3/uL (0.1-1.4) 03/23/19 03:58 Absolute Eos (auto) 0.3 10^3/uL (0.0-0.6) 03/23/19 03:58 Absolute Basos (auto) 0.1 10^3/uL (0.0-0.2) 03/23/19 03:58 Seg Neutrophils % 78.3 % (42-78) H 03/23/19 03:58 Retic Count (auto) 1.92 % (0.66-2.85) 03/22/19 09:25 Sodium 141.7 mmol/L (137-145) 03/23/19 03:58 Potassium 3.6 mmol/L (3.6-5.0) 03/23/19 03:58 Chloride 109 mmol/L (98-107) H 03/23/19 03:58 Carbon Dioxide 26 mmol/L (22-30) 03/23/19 03:58 Anion Gap 7 (5-19) 03/23/19 03:58 BUN 37 mg/dL (7-20) H 03/23/19 03:58 Creatinine 1.46 mg/dL (0.52-1.25) H 03/23/19 03:58 Est GFR ( Amer) 56 (>60) L 03/23/19 03:58 Est GFR (MDRD) Non-Af 46 (>60) L 03/23/19 03:58 Glucose 58 mg/dL (75-110) L 03/23/19 03:58 POC Glucose 256 mg/dL (70-110) H 03/23/19 06:58 Calcium 8.8 mg/dL (8.4-10.2) 03/23/19 03:58 Iron 79.9 ug/dL (49-181) 03/22/19 09:25 TIBC 241 ug/dL (250-450) L 03/22/19 09:25 % Saturation 33 % 03/22/19 09:25 Ferritin 452.00 ng/mL (17.9-464.0) 03/22/19 09:25 Total Bilirubin 0.8 mg/dL (0.2-1.3) 03/22/19 09:25 Direct Bilirubin 0.1 mg/dL (0.0-0.4) 03/22/19 09:25 Neonat Total Bilirubin Not Reportable 03/22/19 09:25 Neonat Direct Bilirubin Not Reportable 03/22/19 09:25 Neonat Indirect Bili Not Reportable 03/22/19 09:25 AST 18 U/L (17-59) 03/22/19 09:25 ALT 13 U/L (<50) 03/22/19 09:25 Alkaline Phosphatase 68 U/L (38-126) 03/22/19 09:25 Total Protein 6.6 g/dL (6.3-8.2) 03/22/19 09:25 Albumin 3.2 g/dL (3.5-5.0) L 03/22/19 09:25 Vitamin B12 > 1000.0 pg/mL (239-931) H 03/22/19 09:25 Folate > 20.00 ng/mL (>2.76) 03/22/19 09:25 POC Stool Occult Blood POSITIVE (NEGATIVE) 03/22/19 12:27 Blood Type B POSITIVE 03/22/19 09:25 Antibody Screen NEGATIVE 03/22/19 09:25 Crossmatch See Detail 03/22/19 09:25 Impressions: Chest X-Ray 03/22/19 12:33 IMPRESSION: Minimal left basilar atelectasis Stroke Is this a Stroke Patient?: No Acute Heart Failure - Is this a Heart Failure Patient?: No
[2019-03-23 14:53] VITALS: BP 158/72
== END 2019-03-23 17:57 ==
LOC: ER 09:10 → EH 15:07 → 5 21:54
PROVIDERS: ADMIT Internal Medicine; ATTEND Internal Medicine
DX: D64.89 Other specified anemias (principal); N17.9 Acute kidney failure, unspecified; N18.9 Chronic kidney disease, unspecified; F03.90 Unspecified dementia, unspecified severity, without behavioral disturbance, psychotic disturbance, mood disturbance, and anxiety; E11.9 Type 2 diabetes mellitus without complications; I25.10 Atherosclerotic heart disease of native coronary artery without angina pectoris; R01.1 Cardiac murmur, unspecified; K92.1 Melena; I44.0 Atrioventricular block, first degree; I25.2 Old myocardial infarction; Z66 Do not resuscitate; Z79.899 Other long term (current) drug therapy; Z79.4 Long term (current) use of insulin; Z85.51 Personal history of malignant neoplasm of bladder; Z91.81 History of falling
CPT/HCPCS: 93005; 99285; 96361; 96374; 86900; 86901; 36415 ×2; 36430; 86850; 82962 ×2; 82607; 82728; 82746; 83540; 83550; 85025 ×2; 85045; 80048; 80053; 86920; 71045; 93010; G0378 ×3; P9016; A9270; J2060; J7030; J7050; J1815

== ENCOUNTER 2019-04-17 15:34 | Inpatient (IN) | payer MEDICARE, MEDICAID ==
[2019-04-17 16:10] LABS: ABSOLUTE BASOPHILS # (AUTO) 0.1 10^3/uL (0.0-0.2); ABSOLUTE LYMPHOCYTES (AUTO) 1.2 10^3/uL (0.5-4.7); ABSOLUTE MONOCYTES (AUTO) 1.2 10^3/uL (0.1-1.4); ABSOLUTE NEUT (AUTO) 13.7 10^3/uL (1.7-8.2); BASOPHILS % (AUTO) 0.4 % (0-2); EOSINOPHILS % (AUTO) 0.3 % (0-6); HEMATOCRIT 30.5 % (37.9-51.0); HEMOGLOBIN 9.9 g/dL (13.5-17.0); LYMPHOCYTES % (AUTO) 7.5 % (13-45); MEAN CORPUSCULAR HEMOGLOBIN 32.7 pg (27.0-33.4); MEAN CORPUSCULAR HGB CONC 32.4 g/dL (32.0-36.0); MEAN CORPUSCULAR VOLUME 101 fl (80-97); MONOCYTES % (AUTO) 7.1 % (3-13); PLATELET COUNT 193 10^3/uL (150-450); RED BLOOD COUNT 3.02 10^6/uL (4.35-5.55); SEGMENTED NEUTROPHILS % (AUTO) 84.7 % (42-78); TOTAL CELLS COUNTED % (AUTO) 100 %; WHITE BLOOD COUNT 16.2 10^3/uL (4.0-10.5)
[2019-04-17 16:18] LABS: APPEARANCE,URINE CLOUDY; BILIRUBIN,URINE NEGATIVE (NEGATIVE); COLOR,URINE YELLOW; GLUCOSE, URINE 50 mg/dL (NEGATIVE); KETONES,URINE NEGATIVE (NEGATIVE); LEUKOCYTE ESTERASE,URINE TRACE (NEGATIVE); NITRITE,URINE NEGATIVE (NEGATIVE); PROTEIN,URINE 100 mg/dL (NEGATIVE); URINE SPECIFIC GRAVITY 1.018; UROBILINOGEN,URINE NEGATIVE mg/dL (<2.0)
--- NOTE | 2019-04-17 16:28 | ER Document Report ---
ED General - General Chief Complaint: Abnormal Lab Results Stated Complaint: ABNORMAL LABS Time Seen by Provider: 04/17/19 16:26 Primary Care Provider: TAYLER PATEL MD [Primary Care Provider] - Follow up as needed Mode of Arrival: Medic Information source: Emergency Med Personnel, OM Records, Outside Facility Records Cannot obtain history due to: Dementia TRAVEL OUTSIDE OF THE [place] IN LAST 30 DAYS: No - HPI Onset: Other - over the last 1-2 days Onset/Duration: Gradual Quality of pain: No pain Severity: Severe Pain Level: Denies Associated symptoms: Other - weakness, confusion Exacerbated by: Other - unknown Relieved by: Other - unknown Notes: 84 year old male with a history of Dementia, Bipolar, Schizophrenia, DM, HTN who [facility] in a [facility] sent to the ER today for altered mental status and an apparent high sodium. The patient had labs drawn at his prison and his sodium was reported to be "very high." The patient is nonverbal currently and unable to answer my questions. The nursing staff in the ER know this patient and they tell me this is not his norm as he is usually very combative and agitated due to his Dementia. - Related Data Allergies/Adverse Reactions: No Known Allergies Allergy (Unverified 08/20/18 19:17) Past Medical History - General Information source: Emergency Med Personnel, OM Records, Outside Facility Records Cannot obtain history due to: Dementia - Social History Smoking Status: Unknown if Ever Smoked Frequency of alcohol use: None Drug Abuse: None Lives with: Prison Family History: Reviewed & Not Pertinent - Past Medical History Cardiac Medical History: Reports: Hx Hypertension Endocrine Medical History: Reports: Hx Diabetes Mellitus Type 2 Renal/ Medical History: Denies: Hx Peritoneal Dialysis Psychiatric Medical History: Reports: Hx Bipolar Disorder, Hx Dementia, Hx Schizophrenia Review of Systems - Review of Systems -: Yes ROS unobtainable due to patient's medical condition Constitutional: Weakness Neurological/Psychological: See HPI, Confusion, Dementia -: Yes All other systems reviewed and negative - Patient has dementia and is altered. History obtained from nurses and medic Physical Exam - Vital signs Vitals: Resp 17 04/17/19 16:00 - Notes Notes: GENERAL: Chronically ill appearing, responds to painful stimuli only. Wearing a diaper. HEAD: Atraumatic, normocephalic. EYES: Pupils equal round and reactive to light, extraocular movements intact, sclera anicteric, conjunctiva are normal. ENT: Nares patent, oropharynx clear without exudates. Dry mucous membranes. NECK: Normal range of motion, supple without lymphadenopathy or JVD. LUNGS: Breath sounds clear to auscultation bilaterally and equal. No wheezes rales or rhonchi. HEART: Regular rate and rhythm without murmurs, rubs or gallops. ABDOMEN: Soft, nontender, normoactive bowel sounds. No guarding, no rebound. No masses appreciated. EXTREMITIES: Normal range of motion, no pitting or edema. No clubbing or cyanosis. NEUROLOGICAL: Patient is nonresponsive to verbal stimuli. Patient withdraws from painful stimuli. Nursing staff who know the patient tell me he is usually very combative and not somnolent like he is currently. PSYCH: Unable to check. SKIN: Warm, Dry Skin, decreased turgor, no rashes or lesions noted. Course - Re-evaluation Re-evalutation: 04/17/19 17:39 The patient is DNR and has severe dementia. No family is with him. He was found to be severely hypernatremic, to be in renal failure, to have a UTI, and to have an NSTEMI which is likely demand related. The patient was treated with fluids (2L of NS) and IV Rocephin prior to admission. The patient meets sepsis criteria. Patient admitted to [facility] since his blood pressure responded to fluids here in the ER. - Vital Signs Vital signs: Temp Pulse Resp BP Pulse Ox 98.3 F 19 75/36 L 04/17/19 16:04 04/17/19 16:01 04/17/19 16:01 - Laboratory Result Diagrams: 04/17/19 15:55 04/17/19 15:55 Laboratory results interpreted by me: 04/17/19 04/17/19 04/17/19 15:55 15:55 15:55 WBC 16.2 H RBC 3.02 L Hgb 9.9 L Hct 30.5 L MCV 101 H RDW 23.0 H Lymph % (Auto) 7.5 L Absolute Neuts (auto) 13.7 H Seg Neutrophils % 84.7 H Sodium 162.8 H Chloride 131 H BUN 160 H Creatinine 4.09 H Est GFR ( Amer) 17 L Est GFR (MDRD) Non-Af 14 L Glucose 251 H Magnesium 3.3 H Urine Protein Urine Glucose (UA) Urine Blood Ur Leukocyte Esterase Urine Ascorbic Acid 04/17/19 16:00 WBC RBC Hgb Hct MCV RDW Lymph % (Auto) Absolute Neuts (auto) Seg Neutrophils % Sodium Chloride BUN Creatinine Est GFR ( Amer) Est GFR (MDRD) Non-Af Glucose Magnesium Urine Protein 100 H Urine Glucose (UA) 50 H Urine Blood LARGE H Ur Leukocyte Esterase TRACE H Urine Ascorbic Acid 40 H - Diagnostic Test Radiology reviewed: Image reviewed, Reports reviewed - EKG Interpretation by Me EKG shows normal: Sinus rhythm, [place], Intervals, QRS Complexes Rate: Tachycardia When compared to previous EKG there are: Changes noted Additional EKG results interpreted by me: 04/17/19 17:38 ST Depressions in V2-V6 which are new Critical Care Note - Critical Care Note Total time excluding time spent on procedures (mins): 41 Discharge - Discharge Clinical Impression: Hypernatremia, NSTEMI (non-ST elevated myocardial infarction) UTI (urinary tract infection) Qualifiers: Urinary tract infection type: acute cystitis Hematuria presence: with hematuria Qualified Code(s): N30.01 - Acute cystitis with hematuria Disposition: ADMITTED INPATIENT Admitting Provider: Nelda (Hospitalist) Unit Admitted: IMCU Referrals: TAYLER PATEL MD [Primary Care Provider] - Follow up as needed
[2019-04-17 16:30] LABS: ALBUMIN 3.9 g/dL (3.5-5.0); ALKALINE PHOSPHATASE 92 U/L (38-126); ANION GAP 8 (5-19); ASPARTATE AMINO TRANSFERASE 36 U/L (17-59); BILIRUBIN,TOTAL 1.1 mg/dL (0.2-1.3); CALCIUM 9.5 mg/dL (8.4-10.2); CARBON DIOXIDE 24 mmol/L (22-30); CHLORIDE 131 mmol/L (98-107); GLUCOSE 251 mg/dL (75-110); TOTAL PROTEIN 7.2 g/dL (6.3-8.2)
[2019-04-17 16:38] LABS: BLOOD UREA NITROGEN 160 mg/dL (7-20)
--- NOTE | 2019-04-17 17:00 | RADIOLOGY REPORT (SQ) ---
EXAM DESCRIPTION: CHEST SINGLE VIEW COMPLETED DATE/TIME: 04/17/2019 4:49 pm REASON FOR STUDY: shortness of breath COMPARISON: AP chest 03/22/2019 EXAM PARAMETERS: NUMBER OF VIEWS: One view. TECHNIQUE: Single frontal radiographic view of the chest acquired. RADIATION DOSE: NA LIMITATIONS: None. FINDINGS: LUNGS AND PLEURA: Upper lobes are hyperlucent suggesting obstructive disease. Mild scarri ng both lung bases. No acute infiltrates. No pleural effusion or pneumothorax. MEDIASTINUM AND HILAR STRUCTURES: No masses. Contour normal. HEART AND VASCULAR STRUCTURES: Heart normal in size. Normal vasculature. BONES: No acute findings. HARDWARE: None in the chest. OTHER: No other significant finding. IMPRESSION: No acute findings TECHNICAL DOCUMENTATION: JOB ID: [id number] [employer]- All Rights Reserved Reading location - IP/workstation name: [email or web address]
[2019-04-17 17:05] LABS: CREATINE KINASE MB 3.49 ng/mL (<4.55)
[2019-04-17 17:09] LABS: TROPONIN I 0.133 ng/mL
[2019-04-17] MEDS ORDERED: CEFTRIAXONE INJ 1000 MG VIAL IV ONE (17:26)
[2019-04-17] MEDS ORDERED: LORAZEPAM INJ 2 MG/1 ML VIAL IV ONE (17:49)
[2019-04-17] MEDS ORDERED: GLUCAGON,HUMAN RECOMB 1 MG INJ IM PRN (18:01)
[2019-04-17] MEDS ORDERED: DEXTROSE 50%-WATER 25 GM/50 ML DISP.SYRIN IV PRN ×2 (18:01)
[2019-04-17] MEDS ORDERED: DEXTROSE 40% GEL 15 GM TUBE PO PRN ×2 (18:01)
[2019-04-17] MEDS ORDERED: HYDRALAZINE HCL INJ/PF 20 MG/1 ML SDV IV PRN (18:13)
--- NOTE | 2019-04-17 18:13 | PDOC H&P ---
History of Present Illness Admission Date/PCP: TAYLER PATEL MD Patient complains of: AMS History of Present Illness: SHAUN PEDRAZA is a 84 year old male with a past medical history of dementia, history of bipolar disorder, schizophrenia, history of bladder cancer, hypertension and insulin-dependent diabetes mellitus who was sent to the ER from [facility] due to profound hyperatremia. Patient is reportedly occasionally combative on his baseline. Staff reports that he was noticed to be less agitated and less risk upon sitting to his baseline. He had a BMP done at the residential which showed a sodium of 152. In the ER, repeat BMP showed sodium of 162. He was also noted to be in acute renal failure with a creatinine of 4. He is also found to have a urinary tract infection. Upon encounter, patient appears comfortable on room air. He is nonverbal but is able to move all of his 4 extremities with no apparent weakness. He does appear very dehydrated with parched lips and very dry oral mucosa. Patient has been given 2 L of normal saline in the ER. Past Medical History Cardiac Medical History: Reports: Hypertension Endocrine Medical History: Reports: Diabetes Mellitus Type 2 Psychiatric Medical History: Reports: Bipolar Disorder, Dementia Hematology: Reports: Anemia Social History Lives with: [facility] Smoking Status: Unknown if Ever Smoked Frequency of Alcohol Use: None Family History Family History: Reviewed & Not Pertinent Parental Family History Reviewed: Yes - no premature CAD Children Family History Reviewed: No Sibling(s) Family History Reviewed.: No Medication/Allergy Home Medications: Acetaminophen [Tylenol] 650 mg PO Q4HP PRN 03/23/19 Ascorbic Acid [Vitamin C 500 mg Tablet] 500 mg PO BID 03/23/19 Buspirone HCl [Buspar 10 mg Tablet] 10 mg PO QHS 03/23/19 Buspirone HCl [Buspar 5 mg Tablet] 5 mg PO QAM 03/23/19 Calcium Carbonate [Calcium] 500 mg PO DAILY 03/23/19 Citalopram Hydrobromide [Celexa 20 mg Tablet] 20 mg PO QHS 03/23/19 Donepezil HCl [Aricept] 10 mg PO QHS 03/23/19 Ferrous Sulfate [Feosol 325 mg Tablet] 325 mg PO BID 03/23/19 Guaifenesin [Tussin] 10 ml PO Q4HP PRN 01/05/20 Insulin Glargine,Hum.rec.anlog [Lantus Insulin 100 Unit/1 ml 10 ml] 13 unit SUBCUT QHS 03/23/19 Lorazepam [Ativan 0.5 mg Tablet] 0.5 mg PO Q8HP PRN 03/23/19 Lorazepam [Ativan Inj 2 mg/1 ml Vial] 1 mg IM Q8HP PRN 03/23/19 Memantine HCl [Namenda] 5 mg PO BID 03/23/19 Multivitamin [Daily Multiple Vitamin] 1 each PO DAILY 03/23/19 Allergies/Adverse Reactions: No Known Allergies Allergy (Unverified 08/20/18 19:17) Review of Systems All systems: reviewed and no additional remarkable complaints except as stated - mentioned in HPI Physical Exam Vital Signs: Temp Pulse Resp BP Pulse Ox 98.3 F 19 75/36 L 04/17/19 16:04 04/17/19 16:01 04/17/19 16:01 Intake & Output 04/16/19 04/17/19 04/18/19 06:59 06:59 06:59 Weight 135 lb 12.876 oz General appearance: PRESENT: no acute distress, well-developed, well-nourished Head exam: PRESENT: atraumatic, normocephalic Eye exam: PRESENT: conjunctiva pink, EOMI, PERRLA. ABSENT: scleral icterus Ear exam: PRESENT: normal external ear exam Mouth exam: PRESENT: dry mucosa Neck exam: ABSENT: carotid bruit, JVD, lymphadenopathy, thyromegaly Respiratory exam: PRESENT: clear to auscultation pam. ABSENT: rales, rhonchi, wheezes Cardiovascular exam: PRESENT: RRR. ABSENT: diastolic murmur, rubs, systolic murmur Pulses: PRESENT: normal dorsalis pedis pul GI/Abdominal exam: PRESENT: normal bowel sounds, soft. ABSENT: distended, guarding, mass, organolmegaly, rebound, tenderness Rectal exam: PRESENT: deferred Extremities exam: PRESENT: full ROM. ABSENT: calf tenderness, clubbing, pedal edema Neurological exam: PRESENT: alert, awake, CN II-XII grossly intact. ABSENT: motor sensory deficit Results Laboratory Results: 04/17/19 15:55 04/17/19 15:55 04/17/19 04/17/19 04/17/19 15:55 15:55 15:55 WBC 16.2 H RBC 3.02 L Hgb 9.9 L Hct 30.5 L MCV 101 H MCH 32.7 MCHC 32.4 RDW 23.0 H Plt Count 193 Seg Neutrophils % 84.7 H Sodium 162.8 H Potassium 5.0 Chloride 131 H Carbon Dioxide 24 Anion Gap 8 BUN 160 H Creatinine 4.09 H Est GFR ( Amer) 17 L Glucose 251 H Lactic Acid 2.0 Calcium 9.5 Magnesium Total Bilirubin 1.1 AST 36 Alkaline Phosphatase 92 Total Protein 7.2 Albumin 3.9 Urine Color Urine Appearance Urine pH Ur Specific Dunbar Urine Protein Urine Glucose (UA) Urine Ketones Urine Blood Urine Nitrite Ur Leukocyte Esterase Urine WBC (Auto) Urine RBC (Auto) 04/17/19 04/17/19 15:55 16:00 WBC RBC Hgb Hct MCV MCH MCHC RDW Plt Count Seg Neutrophils % Sodium Potassium Chloride Carbon Dioxide Anion Gap BUN Creatinine Est GFR ( Amer) Glucose Lactic Acid Calcium Magnesium 3.3 H Total Bilirubin AST Alkaline Phosphatase Total Protein Albumin Urine Color YELLOW Urine Appearance CLOUDY Urine pH 5.0 Ur Specific Dunbar 1.018 Urine Protein 100 H Urine Glucose (UA) 50 H Urine Ketones NEGATIVE Urine Blood LARGE H Urine Nitrite NEGATIVE Ur Leukocyte Esterase TRACE H Urine WBC (Auto) 56 Urine RBC (Auto) >182 04/17/19 04/17/19 15:55 15:55 Creatine Kinase 164 CK-MB (CK-2) 3.49 Troponin I 0.133 Impressions: Chest X-Ray 04/17/19 16:35 IMPRESSION: No acute findings Assessment and Plan - Diagnosis (1) Acute metabolic encephalopathy Is this a current diagnosis for this admission?: Yes Plan: Related to severe hypernatremia, acute renal failure and UTI in a patient with dementia. CT of the head pending. (2) Hypernatremia Is this a current diagnosis for this admission?: Yes Plan: Patient was given 2 liters of normal saline bolus in the ER. Switch IV fluids to half-normal saline at 150 cc/h. Will monitor sodium and BMP. (3) Acute on chronic renal failure Is this a current diagnosis for this admission?: Yes Plan: IV fluids as mentioned. Repeat BMP. (4) IDDM (insulin dependent diabetes mellitus) Is this a current diagnosis for this admission?: Yes Plan: Sliding scale for now. Resume Lantus once verified. (5) Hypertension Is this a current diagnosis for this admission?: Yes Plan: Restart home meds once verified. (6) Severe dehydration Is this a current diagnosis for this admission?: Yes Plan: IV fluids as mentioned. (7) UTI (urinary tract infection) Qualifiers: Urinary tract infection type: acute cystitis Hematuria presence: with hematuria Qualified Code(s): N30.01 - Acute cystitis with hematuria Is this a current diagnosis for this admission?: Yes Plan: Continue patient on IV Rocephin. Urine culture sent. (8) Dementia Is this a current diagnosis for this admission?: Yes - Time Time Spent with patient: 25-34 minutes
--- NOTE | 2019-04-17 18:33 | RADIOLOGY REPORT (SQ) ---
EXAM DESCRIPTION: CT HEAD WITHOUT COMPLETED DATE/TIME: 04/17/2019 6:23 pm REASON FOR STUDY: altered mental status COMPARISON: None. TECHNIQUE: Axial images acquired through the brain without intravenous contrast. Images reviewed wi th bone, brain and subdural windows. Additional sagittal and coronal reconstructions were generated. Images stored on PACS. All CT scanners at this facility use dose modulation, iterative reconstruction, and/or weight based d osing when appropriate to reduce radiation dose to as low as reasonably achievable (ALARA). [facility]: Dose Right [facility]: CareDose [facility]: Dose Right [facility]: Teradose 4D [facility]: Smart [employer] RADIATION DOSE: CT Rad equipment meets quality standard of care and radiation dose reduction techniq ues were employed. CTDIvol: 55.2 mGy. DLP: 1250 mGy-cm. mGy. LIMITATIONS: None. FINDINGS: VENTRICLES: Prominent ventricles secondary to involutional atrophy. CEREBRUM: Cortical atrophy. No masses. No hemorrhage. No midline shift. No evidence for acute inf arction. Areas of low density in the white matter most likely chronic small vessel ischemic changes. CEREBELLUM: No masses. No hemorrhage. No alteration of density. No evidence for acute infarction. EXTRAAXIAL SPACES: No fluid collections. No masses. ORBITS AND GLOBE: No intra- or extraconal masses. Normal contour of globe without masses. CALVARIUM: No fracture. PARANASAL SINUSES: No fluid or mucosal thickening. SOFT TISSUES: No mass or hematoma. OTHER: No other significant finding. IMPRESSION: MICROVASCULAR ISCHEMIA AND GENERALIZED ATROPHY. NO ACUTE IMAGING FINDINGS IN THE BRAIN EVIDENCE OF ACUTE STROKE: NO. COMMENT: Quality ID # [id number]: Final reports with documentation of one or more dose reduction techniques (e.g., Automated exposure control, adjustment of the mA and/or kV according to patient size, use of iterative reconstruction technique) TECHNICAL DOCUMENTATION: JOB ID: [id number] [employer]- All Rights Reserved Reading location - IP/workstation name: [email or web address]
[2019-04-17] MEDS: 1/2 NORMAL SALINE 1,000 ML IV PRN (20:27)
[2019-04-17 23:08] LABS: ANION GAP 9 (5-19); CALCIUM 8.5 mg/dL (8.4-10.2); CARBON DIOXIDE 21 mmol/L (22-30); CHLORIDE 132 mmol/L (98-107); GLUCOSE 248 mg/dL (75-110); POTASSIUM 4.4 mmol/L (3.6-5.0)
[2019-04-17 23:39] LABS: BLOOD UREA NITROGEN 149 mg/dL (7-20)
[2019-04-18] MEDS: INSULIN LISPRO 100 UNIT/ML 3 ML VIAL SUBCUT SCH ×5 (00:08→21:46)
[2019-04-18] MEDS: HEPARIN SOD (PORCINE) 5,000 UNIT/ML 1 ML VIAL SUBCUT SCH ×4 (00:09→21:36)
[2019-04-18] MEDS ORDERED: INFLUENZA QUAD (6MOS+) 2019-20 VAC 0.5 ML SYR IM ONE (00:39)
[2019-04-18] MEDS: 1/2 NORMAL SALINE 1,000 ML IV PRN (03:28)
[2019-04-18] MEDS: LORAZEPAM INJ 2 MG/1 ML VIAL IV PRN (05:24)
[2019-04-18 06:35] LABS: ABSOLUTE BASOPHILS # (AUTO) 0.1 10^3/uL (0.0-0.2); ABSOLUTE EOSINOPHILS # (AUTO) 0.3 10^3/uL (0.0-0.6); ABSOLUTE LYMPHOCYTES (AUTO) 0.9 10^3/uL (0.5-4.7); ABSOLUTE MONOCYTES (AUTO) 0.7 10^3/uL (0.1-1.4); ABSOLUTE NEUT (AUTO) 10.5 10^3/uL (1.7-8.2); BASOPHILS % (AUTO) 0.8 % (0-2); HEMATOCRIT 25.4 % (37.9-51.0); HEMOGLOBIN 8.4 g/dL (13.5-17.0); LYMPHOCYTES % (AUTO) 7.5 % (13-45); MEAN CORPUSCULAR HEMOGLOBIN 33.2 pg (27.0-33.4); MEAN CORPUSCULAR VOLUME 101 fl (80-97); MONOCYTES % (AUTO) 5.4 % (3-13); PLATELET COUNT 154 10^3/uL (150-450); RED BLOOD COUNT 2.53 10^6/uL (4.35-5.55); RED CELL DISTRIBUTION WIDTH 22.3 % (11.5-14.0); SEGMENTED NEUTROPHILS % (AUTO) 84.3 % (42-78); TOTAL CELLS COUNTED % (AUTO) 100 %; WHITE BLOOD COUNT 12.4 10^3/uL (4.0-10.5)
[2019-04-18 06:44] LABS: ANION GAP 8 (5-19); CALCIUM 8.4 mg/dL (8.4-10.2); CARBON DIOXIDE 21 mmol/L (22-30); CHLORIDE 134 mmol/L (98-107); GLUCOSE 183 mg/dL (75-110); POTASSIUM 4.2 mmol/L (3.6-5.0)
[2019-04-18 06:56] LABS: BLOOD UREA NITROGEN 141 mg/dL (7-20)
[2019-04-18] MEDS: CEFTRIAXONE 1 GM/D5W RTU 1 GM/50 ML RTUPB IV SCH (09:16)
[2019-04-18] MEDS: BUSPIRONE HCL 10 MG TABLET PO SCH ×3 (09:16→17:39)
[2019-04-18] MEDS: DEXTROSE 5%-WATER 1000 ML 1,000 ML IV PRN ×2 (09:58→18:40)
--- NOTE | 2019-04-18 13:01 | EKG REPORT ---
SEVERITY:- ABNORMAL ECG - SINUS TACHYCARDIA MULTIFORM VENTRICULAR PREMATURE COMPLEXES REPOL ABNRM SUGGESTS ISCHEMIA, DIFFUSE LEADS BORDERLINE PROLONGED QT INTERVAL : Confirmed by: Rodolfo Centeno 18-Apr-2019 13:00:31
--- NOTE | 2019-04-18 14:45 | PDOC PROGRESS REPORT ---
Subjective Progress Note for:: 04/18/19 Subjective:: SHAUN PEDRAZA is a 84 year old male with a past medical history of dementia, history of bipolar disorder, schizophrenia, history of bladder cancer, hypertension and insulin-dependent diabetes mellitus who was sent to the ER from [facility] due to profound hypernatremia. No acute event overnight. Patient appears calm but remains nonverbal on encounter. CT of the head was unremarkable. Currently n.p.o. due to his acute encephalopathy. Repeat sodium is still elevated at 162. Will switch IV fluids to D5W at 150 cc/h. Reason For Visit: ACUTE ENCEPHALOPATHY,ACUTE RENAL FAILURE,SEVERE Physical Exam Vital Signs: Temp Pulse Resp BP Pulse Ox 97.5 F 72 15 138/61 H 97 04/17/19 23:52 04/18/19 12:06 04/18/19 12:06 04/18/19 12:06 04/18/19 12:06 Intake & Output 04/17/19 04/18/19 04/19/19 06:59 06:59 06:59 Intake Total 1000 50 Balance 1000 50 Weight 135 lb 12.876 oz General appearance: PRESENT: no acute distress, well-developed, well-nourished Head exam: PRESENT: atraumatic, normocephalic Eye exam: PRESENT: conjunctiva pink, EOMI, PERRLA. ABSENT: scleral icterus Ear exam: PRESENT: normal external ear exam Mouth exam: PRESENT: dry mucosa, tongue midline Neck exam: ABSENT: carotid bruit, JVD, lymphadenopathy, thyromegaly Respiratory exam: PRESENT: clear to auscultation pam. ABSENT: rales, rhonchi, wheezes Cardiovascular exam: PRESENT: RRR. ABSENT: diastolic murmur, rubs, systolic murmur Pulses: PRESENT: normal dorsalis pedis pul GI/Abdominal exam: PRESENT: normal bowel sounds, soft. ABSENT: distended, guarding, mass, organolmegaly, rebound, tenderness Rectal exam: PRESENT: deferred Extremities exam: PRESENT: full ROM. ABSENT: calf tenderness, clubbing, pedal edema Neurological exam: PRESENT: alert, awake Results Laboratory Results: 04/18/19 05:53 04/18/19 05:53 04/17/19 04/17/19 04/17/19 15:55 15:55 15:55 WBC 16.2 H RBC 3.02 L Hgb 9.9 L Hct 30.5 L MCV 101 H MCH 32.7 MCHC 32.4 RDW 23.0 H Plt Count 193 Seg Neutrophils % 84.7 H Sodium 162.8 H Potassium 5.0 Chloride 131 H Carbon Dioxide 24 Anion Gap 8 BUN 160 H Creatinine 4.09 H Est GFR ( Amer) 17 L Glucose 251 H Serum Osmolality Lactic Acid 2.0 Calcium 9.5 Magnesium Total Bilirubin 1.1 AST 36 Alkaline Phosphatase 92 Total Protein 7.2 Albumin 3.9 Urine Color Urine Appearance Urine pH Ur Specific Gervais Urine Protein Urine Glucose (UA) Urine Ketones Urine Blood Urine Nitrite Ur Leukocyte Esterase Urine WBC (Auto) Urine RBC (Auto) 04/17/19 04/17/19 04/17/19 15:55 15:55 16:00 WBC RBC Hgb Hct MCV MCH MCHC RDW Plt Count Seg Neutrophils % Sodium Potassium Chloride Carbon Dioxide Anion Gap BUN Creatinine Est GFR ( Amer) Glucose Serum Osmolality 413 H Lactic Acid Calcium Magnesium 3.3 H Total Bilirubin AST Alkaline Phosphatase Total Protein Albumin Urine Color YELLOW Urine Appearance CLOUDY Urine pH 5.0 Ur Specific Gervais 1.018 Urine Protein 100 H Urine Glucose (UA) 50 H Urine Ketones NEGATIVE Urine Blood LARGE H Urine Nitrite NEGATIVE Ur Leukocyte Esterase TRACE H Urine WBC (Auto) 56 Urine RBC (Auto) >182 04/17/19 04/18/19 04/18/19 22:35 05:53 05:53 WBC 12.4 H RBC 2.53 L Hgb 8.4 L Hct 25.4 L MCV 101 H MCH 33.2 MCHC 33.0 RDW 22.3 H Plt Count 154 Seg Neutrophils % 84.3 H Sodium 161.9 H 162.6 H Potassium 4.4 4.2 Chloride 132 H 134 H Carbon Dioxide 21 L 21 L Anion Gap 9 8 BUN 149 H 141 H Creatinine 3.52 H 3.23 H Est GFR ( Amer) 20 L 22 L Glucose 248 H 183 H Serum Osmolality Lactic Acid Calcium 8.5 8.4 Magnesium Total Bilirubin AST Alkaline Phosphatase Total Protein Albumin Urine Color Urine Appearance Urine pH Ur Specific Gervais Urine Protein Urine Glucose (UA) Urine Ketones Urine Blood Urine Nitrite Ur Leukocyte Esterase Urine WBC (Auto) Urine RBC (Auto) 04/17/19 04/17/19 15:55 15:55 Creatine Kinase 164 CK-MB (CK-2) 3.49 Troponin I 0.133 Impressions: Chest X-Ray 04/17/19 16:35 IMPRESSION: No acute findings Head CT 04/17/19 16:36 IMPRESSION: MICROVASCULAR ISCHEMIA AND GENERALIZED ATROPHY. NO ACUTE IMAGING FINDINGS IN THE BRAIN EVIDENCE OF ACUTE STROKE: NO. Assessment and Plan - Diagnosis (1) Acute metabolic encephalopathy Is this a current diagnosis for this admission?: Yes Plan: Related to severe hypernatremia, acute renal failure and UTI in a patient with dementia. CT of the head negative. (2) Hypernatremia Is this a current diagnosis for this admission?: Yes Plan: 04/17: Patient was given 2 liters of normal saline bolus in the ER. Switch IV fluids to half-normal saline at 150 cc/h. Will monitor sodium and BMP. 04/18: Repeat sodium is still elevated at 162. We will switch IV fluids to D5W at 150 cc/h. (3) Acute on chronic renal failure Is this a current diagnosis for this admission?: Yes Plan: Slightly improved with IV fluids. (4) IDDM (insulin dependent diabetes mellitus) Is this a current diagnosis for this admission?: Yes Plan: Continue sliding scale for now. Resume Lantus as he will be switched to D5W. (5) Hypertension Is this a current diagnosis for this admission?: Yes Plan: Restart home meds once verified. (6) Severe dehydration Is this a current diagnosis for this admission?: Yes Plan: IV fluids as mentioned. (7) UTI (urinary tract infection) Qualifiers: Urinary tract infection type: acute cystitis Hematuria presence: with hematuria Qualified Code(s): N30.01 - Acute cystitis with hematuria Is this a current diagnosis for this admission?: Yes Plan: Continue patient on IV Rocephin. Urine culture sent. (8) Dementia Is this a current diagnosis for this admission?: Yes - Time Time Spent with patient: 25-34 minutes
[2019-04-18 16:42] LABS: ANION GAP 9 (5-19); CALCIUM 8.3 mg/dL (8.4-10.2); CARBON DIOXIDE 20 mmol/L (22-30); CHLORIDE 130 mmol/L (98-107); GLUCOSE 239 mg/dL (75-110)
[2019-04-18 16:54] LABS: BLOOD UREA NITROGEN 134 mg/dL (7-20)
[2019-04-18] MEDS: INSULIN GLARGINE,HUM.REC.ANLOG 1,000 UNIT/10 ML VIAL SUBCUT SCH (22:07)
[2019-04-19] MEDS: LORAZEPAM INJ 2 MG/1 ML VIAL IV PRN ×2 (00:55→23:11)
[2019-04-19] MEDS: DEXTROSE 5%-WATER 1000 ML 1,000 ML IV PRN ×3 (02:07→22:32)
[2019-04-19 02:40] LABS: BLOOD UREA NITROGEN 118 mg/dL (7-20); CALCIUM 8.3 mg/dL (8.4-10.2); CARBON DIOXIDE 24 mmol/L (22-30); CHLORIDE 130 mmol/L (98-107); GLUCOSE 180 mg/dL (75-110); POTASSIUM 3.9 mmol/L (3.6-5.0)
[2019-04-19 02:47] LABS: ANION GAP 4 (5-19)
[2019-04-19 05:40] LABS: BLOOD UREA NITROGEN 119 mg/dL (7-20); CALCIUM 8.2 mg/dL (8.4-10.2); CARBON DIOXIDE 22 mmol/L (22-30); CHLORIDE 129 mmol/L (98-107); GLUCOSE 196 mg/dL (75-110); POTASSIUM 3.8 mmol/L (3.6-5.0)
[2019-04-19] MEDS: HEPARIN SOD (PORCINE) 5,000 UNIT/ML 1 ML VIAL SUBCUT SCH ×3 (05:40→22:29)
[2019-04-19 06:00] LABS: ANION GAP 4 (5-19)
[2019-04-19] MEDS: BUSPIRONE HCL 10 MG TABLET PO SCH ×2 (09:08→17:48)
[2019-04-19] MEDS: CEFTRIAXONE 1 GM/D5W RTU 1 GM/50 ML RTUPB IV SCH (09:08)
[2019-04-19] MEDS: INSULIN LISPRO 100 UNIT/ML 3 ML VIAL SUBCUT SCH ×4 (09:08→22:57)
--- NOTE | 2019-04-19 14:11 | PDOC PROGRESS REPORT ---
Subjective Progress Note for:: 04/19/19 Subjective:: SHAUN PEDRAZA is a 84 year old male with a past medical history of dementia, history of bipolar disorder, schizophrenia, history of bladder cancer, hypertension and insulin-dependent diabetes mellitus who was sent to the ER from [facility] due to profound hypernatremia. 04/18: No acute event overnight. Patient appears calm but remains nonverbal on encounter. CT of the head was unremarkable. Currently n.p.o. due to his acute encephalopathy. Repeat sodium is still elevated at 162. Will switch IV fluids to D5W at 150 cc/h. 04/19: Patient has occasional episodes of restlessness but no overt agitation or combativeness. Reportedly he is combative and has bouts of agitation on his baseline. Upon encounter this morning, he appears more responsive to stimulus. Sodium has improved down to 155. Creatinine improving with IV fluids. Continue D5 water. We will continue to monitor BMP. Reason For Visit: ACUTE ENCEPHALOPATHY,ACUTE RENAL FAILURE,SEVERE Physical Exam Vital Signs: Temp Pulse Resp BP Pulse Ox 96.6 F L 66 16 145/65 H 99 04/19/19 06:01 04/19/19 07:00 04/19/19 06:01 04/19/19 06:01 04/19/19 06:01 Intake & Output 04/18/19 04/19/19 04/20/19 06:59 06:59 06:59 Intake Total 1000 2981 50 Balance 1000 2981 50 Weight 135 lb 12.876 oz 138 lb 10.732 oz General appearance: PRESENT: no acute distress, well-developed, well-nourished Head exam: PRESENT: atraumatic, normocephalic Eye exam: PRESENT: conjunctiva pink, EOMI, PERRLA. ABSENT: scleral icterus Ear exam: PRESENT: normal external ear exam Mouth exam: PRESENT: dry mucosa, tongue midline Neck exam: ABSENT: carotid bruit, JVD, lymphadenopathy, thyromegaly Respiratory exam: PRESENT: clear to auscultation pam. ABSENT: rales, rhonchi, wheezes Cardiovascular exam: PRESENT: RRR. ABSENT: diastolic murmur, rubs, systolic murmur Pulses: PRESENT: normal dorsalis pedis pul GI/Abdominal exam: PRESENT: normal bowel sounds, soft. ABSENT: distended, guarding, mass, organolmegaly, rebound, tenderness Rectal exam: PRESENT: deferred Neurological exam: PRESENT: alert, awake, CN II-XII grossly intact. ABSENT: oriented to person, oriented to place, oriented to time, motor sensory deficit Results Laboratory Results: 04/18/19 05:53 04/19/19 04:36 04/18/19 04/18/19 04/18/19 00:53 15:43 16:22 Sodium 158.9 H Potassium 4.0 Chloride 130 H Carbon Dioxide 20 L Anion Gap 9 BUN 134 H Creatinine 2.75 H Est GFR ( Amer) 27 L Est GFR (Non-Af Amer) Glucose 239 H Serum Osmolality Calcium 8.3 L Magnesium 2.9 H TSH Stool Occult Blood POSITIVE 04/19/19 04/19/19 04/19/19 01:35 02:13 02:13 Sodium Cancelled 157.8 H Potassium Cancelled 3.9 Chloride Cancelled 130 H Carbon Dioxide Cancelled 24 Anion Gap Cancelled 4 L BUN Cancelled 118 H Creatinine Cancelled 2.54 H Est GFR ( Amer) Cancelled 29 L Est GFR (Non-Af Amer) Cancelled Glucose Cancelled 180 H Serum Osmolality Calcium Cancelled 8.3 L Magnesium Cancelled 2.8 H TSH 4.93 H Stool Occult Blood 04/19/19 04/19/19 04:36 04:36 Sodium 155.4 H Potassium 3.8 Chloride 129 H Carbon Dioxide 22 Anion Gap 4 L BUN 119 H Creatinine 2.39 H Est GFR ( Amer) 31 L Est GFR (Non-Af Amer) Glucose 196 H Serum Osmolality 368 H Calcium 8.2 L Magnesium TSH Stool Occult Blood 04/17/19 16:00 Catheterized Urine Urine Culture - Final NO GROWTH 2 DAYS 04/17/19 04/17/19 15:55 15:55 Creatine Kinase 164 CK-MB (CK-2) 3.49 Troponin I 0.133 Impressions: Chest X-Ray 04/17/19 16:35 IMPRESSION: No acute findings Head CT 04/17/19 16:36 IMPRESSION: MICROVASCULAR ISCHEMIA AND GENERALIZED ATROPHY. NO ACUTE IMAGING FINDINGS IN THE BRAIN EVIDENCE OF ACUTE STROKE: NO. Assessment and Plan - Diagnosis (1) Acute metabolic encephalopathy Is this a current diagnosis for this admission?: Yes Plan: Related to severe hypernatremia, acute renal failure and UTI in a patient with dementia. CT of the head negative. (2) Hypernatremia Is this a current diagnosis for this admission?: Yes Plan: 04/17: Patient was given 2 liters of normal saline bolus in the ER. Switch IV fluids to half-normal saline at 150 cc/h. Will monitor sodium and BMP. 04/18: Repeat sodium is still elevated at 162. We will switch IV fluids to D5W at 150 cc/h. 04/19: Sodium has improved down to 155. Continue D5 water. We will continue to monitor BMP. (3) Acute on chronic renal failure Is this a current diagnosis for this admission?: Yes Plan: Improving with IV fluids. (4) IDDM (insulin dependent diabetes mellitus) Is this a current diagnosis for this admission?: Yes Plan: Continue sliding scale for now. Continue Lantus. (5) Hypertension Is this a current diagnosis for this admission?: Yes Plan: Restart home meds once verified. (6) Severe dehydration Is this a current diagnosis for this admission?: Yes Plan: IV fluids as mentioned. (7) UTI (urinary tract infection) Qualifiers: Urinary tract infection type: acute cystitis Hematuria presence: with hematuria Qualified Code(s): N30.01 - Acute cystitis with hematuria Is this a current diagnosis for this admission?: Yes Plan: Continue patient on IV Rocephin. (8) Dementia Is this a current diagnosis for this admission?: Yes - Time Time Spent with patient: 25-34 minutes
[2019-04-19 15:50] LABS: FREE T3 2.06 pg/mL (2.77-5.27); FREE T4 (FREE THYROXINE) 1.45 ng/dL (0.78-2.19)
[2019-04-19 22:26] LABS: CALCIUM 8.4 mg/dL (8.4-10.2); CHLORIDE 124 mmol/L (98-107); GLUCOSE 160 mg/dL (75-110)
[2019-04-19 22:37] LABS: CARBON DIOXIDE 23 mmol/L (22-30)
[2019-04-19 22:40] LABS: BLOOD UREA NITROGEN 97 mg/dL (7-20)
[2019-04-19 22:41] LABS: ANION GAP 6 (5-19)
[2019-04-19] MEDS: INSULIN GLARGINE,HUM.REC.ANLOG 1,000 UNIT/10 ML VIAL SUBCUT SCH (22:57)
[2019-04-20] MEDS: HEPARIN SOD (PORCINE) 5,000 UNIT/ML 1 ML VIAL SUBCUT SCH ×3 (05:00→21:47)
[2019-04-20] MEDS: DEXTROSE 5%-WATER 1000 ML 1,000 ML IV PRN ×2 (07:00→17:18)
[2019-04-20] MEDS: INSULIN LISPRO 100 UNIT/ML 3 ML VIAL SUBCUT SCH ×4 (08:31→21:49)
[2019-04-20] MEDS: BUSPIRONE HCL 10 MG TABLET PO SCH ×2 (10:13→17:07)
[2019-04-20] MEDS: CEFTRIAXONE 1 GM/D5W RTU 1 GM/50 ML RTUPB IV SCH (10:13)
--- NOTE | 2019-04-20 14:34 | PDOC PROGRESS REPORT ---
Subjective Progress Note for:: 04/20/19 Subjective:: SHAUN PEDRAZA is a 84 year old male with a past medical history of advanced dementia, history of bipolar disorder, schizophrenia, history of bladder cancer, hypertension and insulin-dependent diabetes mellitus who was sent to the ER from [facility] due to profound hypernatremia. 04/18: No acute event overnight. Patient appears calm but remains nonverbal on encounter. CT of the head was unremarkable. Currently n.p.o. due to his acute encephalopathy. Repeat sodium is still elevated at 162. Will switch IV fluids to D5W at 150 cc/h. 04/19: Patient has occasional episodes of restlessness but no overt agitation or combativeness. Reportedly he is combative and has bouts of agitation on his baseline. Upon encounter this morning, he appears more responsive to stimulus. Sodium has improved down to 155. Creatinine improving with IV fluids. Continue D5 water. We will continue to monitor BMP. 04/20: No acute event overnight. Patient continues to be more responsive today. Sodium continues to gradually trend down. Creatinine continues to improve with IV fluids. We will try to restart diet today. Discussed with patient's daughter. Patient is a DNI/DNI. He was under hospice care before for his history of bladder cancer but he has fairly done well and is in remission in terms of his bladder CA hence was discharged from hospice. Also discussed about long-term nutrition and daughter expressed that they have decided he will not want any PEG tube or artificial feeding at all. She says that he has a fair appetite and oral intake on his baseline when he does not have a UTI or an acute issue going on. Reason For Visit: ACUTE ENCEPHALOPATHY,ACUTE RENAL FAILURE,SEVERE Physical Exam Vital Signs: Temp Pulse Resp BP Pulse Ox 97.3 F 72 16 119/65 93 04/20/19 11:53 04/20/19 11:53 04/20/19 11:53 04/20/19 11:53 04/20/19 11:53 Intake & Output 04/19/19 04/20/19 04/21/19 06:59 06:59 06:59 Intake Total 2981 3050 Balance 2981 3050 Weight 138 lb 10.732 oz 138 lb 0.15 oz General appearance: PRESENT: no acute distress, well-developed, well-nourished Head exam: PRESENT: atraumatic, normocephalic Eye exam: PRESENT: conjunctiva pink, EOMI, PERRLA. ABSENT: scleral icterus Ear exam: PRESENT: normal external ear exam Mouth exam: PRESENT: dry mucosa, tongue midline Neck exam: ABSENT: carotid bruit, JVD, lymphadenopathy, thyromegaly Respiratory exam: PRESENT: clear to auscultation pam. ABSENT: rales, rhonchi, wheezes Cardiovascular exam: PRESENT: RRR. ABSENT: diastolic murmur, rubs, systolic murmur Pulses: PRESENT: normal dorsalis pedis pul GI/Abdominal exam: PRESENT: normal bowel sounds, soft. ABSENT: distended, guarding, mass, organolmegaly, rebound, tenderness Rectal exam: PRESENT: deferred Neurological exam: PRESENT: alert, awake, CN II-XII grossly intact. ABSENT: motor sensory deficit Results Laboratory Results: 04/18/19 05:53 04/19/19 21:52 04/19/19 04/19/19 04/20/19 15:00 21:52 05:40 Sodium 152.8 H Potassium 4.0 Chloride 124 H Carbon Dioxide 23 Anion Gap 6 BUN 97 H D Creatinine 2.13 H Est GFR ( Amer) 36 L Glucose 160 H Serum Osmolality 346 H Calcium 8.4 Free T4 1.45 Free T3 pg/mL 2.06 L 04/17/19 16:00 Catheterized Urine Urine Culture - Final NO GROWTH 2 DAYS 04/17/19 04/17/19 15:55 15:55 Creatine Kinase 164 CK-MB (CK-2) 3.49 Troponin I 0.133 Impressions: Chest X-Ray 04/17/19 16:35 IMPRESSION: No acute findings Head CT 04/17/19 16:36 IMPRESSION: MICROVASCULAR ISCHEMIA AND GENERALIZED ATROPHY. NO ACUTE IMAGING FINDINGS IN THE BRAIN EVIDENCE OF ACUTE STROKE: NO. Assessment and Plan - Diagnosis (1) Acute metabolic encephalopathy Is this a current diagnosis for this admission?: Yes Plan: Related to severe hypernatremia, acute renal failure and UTI in a patient with dementia. CT of the head negative. 2: Improving. (2) Hypernatremia Is this a current diagnosis for this admission?: Yes Plan: 04/17: Patient was given 2 liters of normal saline bolus in the ER. Switch IV fluids to half-normal saline at 150 cc/h. Will monitor sodium and BMP. 04/18: Repeat sodium is still elevated at 162. We will switch IV fluids to D5W at 150 cc/h. 04/19: Sodium has improved down to 155. Continue D5 water. We will continue to monitor BMP. 04/20: Na down to 152. (3) Acute on chronic renal failure Is this a current diagnosis for this admission?: Yes Plan: Improving with IV fluids. 04/20: Crea down to 2.1. (4) IDDM (insulin dependent diabetes mellitus) Is this a current diagnosis for this admission?: Yes Plan: Continue sliding scale for now. Continue Lantus. (5) Hypertension Is this a current diagnosis for this admission?: Yes Plan: Controlled. (6) Severe dehydration Is this a current diagnosis for this admission?: Yes Plan: IV fluids as mentioned. (7) UTI (urinary tract infection) Qualifiers: Urinary tract infection type: acute cystitis Hematuria presence: with hematuria Qualified Code(s): N30.01 - Acute cystitis with hematuria Is this a current diagnosis for this admission?: Yes Plan: Continue patient on IV Rocephin. (8) Dementia Is this a current diagnosis for this admission?: Yes - Time Time Spent with patient: 25-34 minutes
[2019-04-20] MEDS: LORAZEPAM INJ 2 MG/1 ML VIAL IV PRN (21:53)
[2019-04-20] MEDS: INSULIN GLARGINE,HUM.REC.ANLOG 1,000 UNIT/10 ML VIAL SUBCUT SCH (21:55)
[2019-04-21] MEDS: DEXTROSE 5%-WATER 1000 ML 1,000 ML IV PRN ×2 (00:54→09:55)
[2019-04-21] MEDS: HEPARIN SOD (PORCINE) 5,000 UNIT/ML 1 ML VIAL SUBCUT SCH ×3 (05:19→21:53)
[2019-04-21] MEDS: INSULIN LISPRO 100 UNIT/ML 3 ML VIAL SUBCUT SCH ×4 (08:26→21:52)
[2019-04-21] MEDS: BUSPIRONE HCL 10 MG TABLET PO SCH ×2 (09:54→17:15)
[2019-04-21] MEDS: CEFTRIAXONE 1 GM/D5W RTU 1 GM/50 ML RTUPB IV SCH (09:54)
[2019-04-21 10:35] LABS: BLOOD UREA NITROGEN 63 mg/dL (7-20); CALCIUM 8.1 mg/dL (8.4-10.2); CHLORIDE 116 mmol/L (98-107); GLUCOSE 268 mg/dL (75-110); POTASSIUM 3.8 mmol/L (3.6-5.0)
[2019-04-21 10:40] LABS: CARBON DIOXIDE 24 mmol/L (22-30)
[2019-04-21 10:42] LABS: ANION GAP 3 (5-19)
--- NOTE | 2019-04-21 14:15 | PDOC PROGRESS REPORT ---
Subjective Progress Note for:: 04/21/19 Subjective:: SHAUN PEDRAZA is a 84 year old male with a past medical history of advanced dementia, history of bipolar disorder, schizophrenia, history of bladder cancer, hypertension and insulin-dependent diabetes mellitus who was sent to the ER from [facility] due to profound hypernatremia. 04/18: No acute event overnight. Patient appears calm but remains nonverbal on encounter. CT of the head was unremarkable. Currently n.p.o. due to his acute encephalopathy. Repeat sodium is still elevated at 162. Will switch IV fluids to D5W at 150 cc/h. 04/19: Patient has occasional episodes of restlessness but no overt agitation or combativeness. Reportedly he is combative and has bouts of agitation on his baseline. Upon encounter this morning, he appears more responsive to stimulus. Sodium has improved down to 155. Creatinine improving with IV fluids. Continue D5 water. We will continue to monitor BMP. 04/20: No acute event overnight. Patient continues to be more responsive today. Sodium continues to gradually trend down. Creatinine continues to improve with IV fluids. We will try to restart diet today. Discussed with patient's daughter. Patient is a DNI/DNI. He was under hospice care before for his history of bladder cancer but he has fairly done well and is in remission in terms of his bladder CA hence was discharged from hospice. Also discussed about long-term nutrition and daughter expressed that they have decided he will not want any PEG tube or artificial feeding at all. She says that he has a fair appetite and oral intake on his baseline when he does not have a UTI or an acute issue going on. 04/21: No acute event overnight. Sodium has normalized today. Creatinine has significantly improved with IV fluids. Switch D5 water to normal saline at 100 cc/h. Anticipate discharge in the next 24-48 hrs. Reason For Visit: ACUTE ENCEPHALOPATHY,ACUTE RENAL FAILURE,SEVERE Physical Exam Vital Signs: Temp Pulse Resp BP Pulse Ox 97.4 F 57 L 18 116/52 L 100 04/21/19 11:03 04/21/19 11:03 04/21/19 11:03 04/21/19 11:03 04/21/19 11:03 Intake & Output 04/20/19 04/21/19 04/22/19 06:59 06:59 06:59 Intake Total 3050 1999 1050 Balance 3050 1999 1050 Weight 138 lb 0.15 oz 141 lb 1.533 oz General appearance: PRESENT: no acute distress, well-developed, well-nourished Head exam: PRESENT: atraumatic, normocephalic Eye exam: PRESENT: conjunctiva pink, EOMI, PERRLA. ABSENT: scleral icterus Ear exam: PRESENT: normal external ear exam Mouth exam: PRESENT: moist, tongue midline Neck exam: ABSENT: carotid bruit, JVD, lymphadenopathy, thyromegaly Respiratory exam: PRESENT: clear to auscultation pam. ABSENT: rales, rhonchi, wheezes Cardiovascular exam: PRESENT: RRR. ABSENT: diastolic murmur, rubs, systolic m urmur Pulses: PRESENT: normal dorsalis pedis pul GI/Abdominal exam: PRESENT: normal bowel sounds, soft. ABSENT: distended, guarding, mass, organolmegaly, rebound, tenderness Rectal exam: PRESENT: deferred Extremities exam: PRESENT: full ROM. ABSENT: calf tenderness, clubbing, pedal edema Neurological exam: PRESENT: alert, awake, CN II-XII grossly intact. ABSENT: motor sensory deficit Results Laboratory Results: 04/18/19 05:53 04/21/19 09:09 04/21/19 09:09 Sodium 143.1 Potassium 3.8 Chloride 116 H Carbon Dioxide 24 Anion Gap 3 L BUN 63 H Creatinine 1.51 H Est GFR ( Amer) 53 L Glucose 268 H Calcium 8.1 L 04/17/19 04/17/19 15:55 15:55 Creatine Kinase 164 CK-MB (CK-2) 3.49 Troponin I 0.133 Impressions: Chest X-Ray 04/17/19 16:35 IMPRESSION: No acute findings Head CT 04/17/19 16:36 IMPRESSION: MICROVASCULAR ISCHEMIA AND GENERALIZED ATROPHY. NO ACUTE IMAGING FINDINGS IN THE BRAIN EVIDENCE OF ACUTE STROKE: NO. Assessment and Plan - Diagnosis (1) Acute metabolic encephalopathy Is this a current diagnosis for this admission?: Yes Plan: Related to severe hypernatremia, acute renal failure and UTI in a patient with dementia. CT of the head negative. 04/20: Improving. (2) Hypernatremia Is this a current diagnosis for this admission?: Yes Plan: 04/17: Patient was given 2 liters of normal saline bolus in the ER. Switch IV fluids to half-normal saline at 150 cc/h. Will monitor sodium and BMP. 04/18: Repeat sodium is still elevated at 162. We will switch IV fluids to D5W at 150 cc/h. 04/19: Sodium has improved down to 155. Continue D5 water. We will continue to monitor BMP. 04/20: Na down to 152. 04/21: Sodium has normalized today. Creatinine has significantly improved with IV fluids. Switch D5 water to normal saline at 100 cc/h. Anticipate discharge in the next 24-48 hrs. (3) Acute on chronic renal failure Is this a current diagnosis for this admission?: Yes Plan: Improving with IV fluids. 04/20: Crea down to 2.1. 04/21: Crea continue to improve. (4) IDDM (insulin dependent diabetes mellitus) Is this a current diagnosis for this admission?: Yes Plan: Continue sliding scale for now. Continue Lantus. (5) Hypertension Is this a current diagnosis for this admission?: Yes Plan: Controlled. (6) Severe dehydration Is this a current diagnosis for this admission?: Yes Plan: IV fluids as mentioned. (7) UTI (urinary tract infection) Qualifiers: Urinary tract infection type: acute cystitis Hematuria presence: with hematuria Qualified Code(s): N30.01 - Acute cystitis with hematuria Is this a current diagnosis for this admission?: Yes Plan: Continue patient on IV Rocephin. (8) Dementia Is this a current diagnosis for this admission?: Yes - Time Time Spent with patient: 25-34 minutes
[2019-04-21] MEDS: NORMAL SALINE 1000 ML 1,000 ML IV PRN (15:00)
[2019-04-21] MEDS: INSULIN GLARGINE,HUM.REC.ANLOG 1,000 UNIT/10 ML VIAL SUBCUT SCH (21:53)
[2019-04-22] MEDS: NORMAL SALINE 1000 ML 1,000 ML IV PRN (00:19)
[2019-04-22] MEDS: LORAZEPAM INJ 2 MG/1 ML VIAL IV PRN (01:13)
[2019-04-22] MEDS: HEPARIN SOD (PORCINE) 5,000 UNIT/ML 1 ML VIAL SUBCUT SCH ×2 (05:09→13:56)
[2019-04-22] MEDS: INSULIN LISPRO 100 UNIT/ML 3 ML VIAL SUBCUT SCH ×2 (08:37→13:19)
[2019-04-22] MEDS: BUSPIRONE HCL 10 MG TABLET PO SCH (09:21)
[2019-04-22] MEDS: CEFTRIAXONE 1 GM/D5W RTU 1 GM/50 ML RTUPB IV SCH (09:25)
--- NOTE | 2019-04-22 13:21 | PDOC TRANSFER SUMMARY ---
Impression - Admit/DC Date/PCP Admission Date/Primary Care Provider: 04/17/19 17:58 TAYLER PATEL MD Discharge Date: 04/22/19 - Discharge Diagnosis (1) Acute metabolic encephalopathy Is this a current diagnosis for this admission?: Yes (2) Hypernatremia Is this a current diagnosis for this admission?: Yes (3) Hypertension Is this a current diagnosis for this admission?: Yes (4) IDDM (insulin dependent diabetes mellitus) Is this a current diagnosis for this admission?: Yes (5) Severe dehydration Is this a current diagnosis for this admission?: Yes (6) UTI (urinary tract infection) Is this a current diagnosis for this admission?: Yes - Additional Information Resuscitation Status: Do Not Resuscitate Discharge Diet: Other (Comments) - resume previous Discharge Activity: Supervised Activity Referrals: TAYLER PATEL MD [Primary Care Provider] - Follow up as needed Home Medications: Acetaminophen [Tylenol] 650 mg PO Q4HP PRN 03/23/19 Ascorbic Acid [Vitamin C 500 mg Tablet] 500 mg PO BID 03/23/19 Buspirone HCl [Buspar 10 mg Tablet] 10 mg PO QHS 03/23/19 Buspirone HCl [Buspar 5 mg Tablet] 5 mg PO QAM 03/23/19 Calcium Carbonate [Calcium] 500 mg PO DAILY 03/23/19 Citalopram Hydrobromide [Celexa 20 mg Tablet] 20 mg PO QHS 03/23/19 Donepezil HCl [Aricept] 10 mg PO QHS 03/23/19 Ferrous Sulfate [Feosol 325 mg Tablet] 325 mg PO BID 03/23/19 Guaifenesin [Tussin] 10 ml PO Q4HP PRN 03/23/19 Insulin Glargine,Hum.rec.anlog [Lantus Insulin 100 Unit/1 ml 10 ml] 13 unit SUBCUT QHS 03/23/19 Lorazepam [Ativan 0.5 mg Tablet] 0.5 mg PO Q8HP PRN 03/23/19 Lorazepam [Ativan Inj 2 mg/1 ml Vial] 1 mg IM Q8HP PRN 03/23/19 Memantine HCl [Namenda] 5 mg PO BID 03/23/19 Multivitamin [Daily Multiple Vitamin] 1 each PO DAILY 03/23/19 History of Present Illiness History of Present Illness: SHAUN PEDRAZA is a 84 year old male with a past medical history of dementia, history of bipolar disorder, schizophrenia, history of bladder cancer, hypertension and insulin-dependent diabetes mellitus who was sent to the ER from [facility] due to profound hyperatremia. Patient is reportedly occasionally combative on his baseline. Staff reports that he was noticed to be less agitated and less risk upon sitting to his baseline. [facility] which showed a sodium of 152. In the ER, repeat BMP showed sodium of 162. He was also noted to be in acute renal failure with a creatinine of 4. He is also found to have a urinary tract infection. Upon encounter, patient appears comfortable on room air. He is nonverbal but is able to move all of his 4 extremities with no apparent w eakness. He does appear very dehydrated with parched lips and very dry oral mucosa. Patient has been given 2 L of normal saline in the ER. Hospital Course Hospital Course: He was given IV fluids and his sodium was monitored, and as it slowly trended down towards the normal range his mental status improved. It was initially thought at 1 point he had a urinary tract infection but nothing ever grew out of his urine culture. His creatinine was initially elevated and it trended down to his normal range, which is around 1.5. His comorbid conditions were managed with his home medications. His fluid intake will especially have to be monitored at the shelter facility to make sure he is getting enough fluids in a day. His labs and examination are reassuring and he was discharged in stable condition. Physical Exam Vital Signs: Temp Pulse Resp BP Pulse Ox 97.5 F 72 16 114/41 L 97 04/22/19 07:54 04/22/19 07:54 04/22/19 07:54 04/22/19 07:54 04/22/19 07:54 Intake & Output 04/21/19 04/22/19 04/23/19 06:59 06:59 06:59 Intake Total 1999 3221 Output Total 0 Balance 1999 3221 Weight 64 kg 63.9 kg General appearance: PRESENT: no acute distress, well-developed, thin Head exam: PRESENT: atraumatic, normocephalic Eye exam: PRESENT: conjunctiva pink, EOMI, PERRLA. ABSENT: scleral icterus Ear exam: PRESENT: normal external ear exam Mouth exam: PRESENT: moist, tongue midline Neck exam: ABSENT: carotid bruit, JVD, lymphadenopathy, thyromegaly Respiratory exam: PRESENT: clear to auscultation pam. ABSENT: rales, rhonchi, wheezes Cardiovascular exam: PRESENT: RRR. ABSENT: diastolic murmur, rubs, systolic murmur Pulses: PRESENT: normal dorsalis pedis pul GI/Abdominal exam: PRESENT: normal bowel sounds, soft. ABSENT: distended, guarding, mass, organolmegaly, rebound, tenderness Extremities exam: PRESENT: full ROM. ABSENT: calf tenderness, clubbing, pedal edema Neurological exam: PRESENT: alert, awake Results Laboratory Results: WBC 12.4 10^3/uL (4.0-10.5) H 04/18/19 05:53 RBC 2.53 10^6/uL (4.35-5.55) L 04/18/19 05:53 Hgb 8.4 g/dL (13.5-17.0) L 04/18/19 05:53 Hct 25.4 % (37.9-51.0) L 04/18/19 05:53 MCV 101 fl (80-97) H 04/18/19 05:53 MCH 33.2 pg (27.0-33.4) 04/18/19 05:53 MCHC 33.0 g/dL (32.0-36.0) 04/18/19 05:53 RDW 22.3 % (11.5-14.0) H 04/18/19 05:53 Plt Count 154 10^3/uL (150-450) 04/18/19 05:53 Lymph % (Auto) 7.5 % (13-45) L 04/18/19 05:53 [place] % (Auto) 5.4 % (3-13) 04/18/19 05:53 Eos % (Auto) 2.0 % (0-6) 04/18/19 05:53 Baso % (Auto) 0.8 % (0-2) 04/18/19 05:53 Absolute Neuts (auto) 10.5 10^3/uL (1.7-8.2) H 04/18/19 05:53 Absolute Lymphs (auto) 0.9 10^3/uL (0.5-4.7) 04/18/19 05:53 Absolute Monos (auto) 0.7 10^3/uL (0.1-1.4) 04/18/19 05:53 Absolute Eos (auto) 0.3 10^3/uL (0.0-0.6) 04/18/19 05:53 Absolute Basos (auto) 0.1 10^3/uL (0.0-0.2) 04/18/19 05:53 Seg Neutrophils % 84.3 % (42-78) H 04/18/19 05:53 Sodium 143.1 mmol/L (137-145) 04/21/19 09:09 Potassium 3.8 mmol/L (3.6-5.0) 04/21/19 09:09 Chloride 116 mmol/L (98-107) H 04/21/19 09:09 Carbon Dioxide 24 mmol/L (22-30) 04/21/19 09:09 Anion Gap 3 (5-19) L 04/21/19 09:09 BUN 63 mg/dL (7-20) H 04/21/19 09:09 Creatinine 1.51 mg/dL (0.52-1.25) H 04/21/19 09:09 Est GFR ( Amer) 53 (>60) L 04/21/19 09:09 Est GFR (Non-Af Amer) Cancelled 04/19/19 01:35 Est GFR (MDRD) Non-Af 44 (>60) L 04/21/19 09:09 Glucose 268 mg/dL (75-110) H 04/21/19 09:09 POC Glucose 184 mg/dL (70-110) H 04/22/19 11:32 Hemoglobin A1c % 9.2 % (4.7-6.0) H 04/17/19 15:55 Serum Osmolality 329 mOsm/kg (275-301) H 04/21/19 09:09 Lactic Acid 2.0 mmol/L (0.7-2.1) 04/17/19 15:55 Calcium 8.1 mg/dL (8.4-10.2) L 04/21/19 09:09 Magnesium 2.8 mg/dL (1.6-2.3) H 04/19/19 02:13 Total Bilirubin 1.1 mg/dL (0.2-1.3) 04/17/19 15:55 Direct Bilirubin 0.0 mg/dL (0.0-0.4) 04/17/19 15:55 Neonat Total Bilirubin Not Reportable 04/17/19 15:55 Neonat Direct Bilirubin Not Reportable 04/17/19 15:55 Neonat Indirect Bili Not Reportable 04/17/19 15:55 AST 36 U/L (17-59) 04/17/19 15:55 ALT 32 U/L (<50) 04/17/19 15:55 Alkaline Phosphatase 92 U/L (38-126) 04/17/19 15:55 Creatine Kinase 164 U/L (55-170) 04/17/19 15:55 CK-MB (CK-2) 3.49 ng/mL (<4.55) 04/17/19 15:55 Troponin I 0.133 ng/mL 04/17/19 15:55 Total Protein 7.2 g/dL (6.3-8.2) 04/17/19 15:55 Albumin 3.9 g/dL (3.5-5.0) 04/17/19 15:55 EGFR Cancelled 04/19/19 01:35 TSH 4.93 uIU/mL (0.47-4.68) H 04/19/19 02:13 Free T4 1.45 ng/dL (0.78-2.19) 04/19/19 15:00 Free T3 pg/mL 2.06 pg/mL (2.77-5.27) L 04/19/19 15:00 Random Cortisol 12.30 ug/dL (None Established) 04/19/19 02:13 Urine Color YELLOW 04/17/19 16:00 Urine Appearance CLOUDY 04/17/19 16:00 Urine pH 5.0 (5.0-9.0) 04/17/19 16:00 Ur Specific Gregory 1.018 04/17/19 16:00 Urine Protein 100 mg/dL (NEGATIVE) H 04/17/19 16:00 Urine Glucose (UA) 50 mg/dL (NEGATIVE) H 04/17/19 16:00 Urine Ketones NEGATIVE mg/dL (NEGATIVE) 04/17/19 16:00 Urine Blood LARGE (NEGATIVE) H 04/17/19 16:00 Urine Nitrite NEGATIVE (NEGATIVE) 04/17/19 16:00 Urine Bilirubin NEGATIVE (NEGATIVE) 04/17/19 16:00 Urine Urobilinogen NEGATIVE mg/dL (<2.0) 04/17/19 16:00 Ur Leukocyte Esterase TRACE (NEGATIVE) H 04/17/19 16:00 Urine WBC (Auto) 56 /HPF 04/17/19 16:00 Urine RBC (Auto) >182 /HPF 04/17/19 16:00 U Hyaline Cast (Auto) 15 /LPF 04/17/19 16:00 Urine Bacteria (Auto) TRACE /HPF 04/17/19 16:00 Urine WBC Clumps FEW /HPF 04/17/19 16:00 Squamous Epi Cells Auto 1 /HPF 04/17/19 16:00 U Non-Squamous Epis Auto 2 /HPF 04/17/19 16:00 Urine Mucus (Auto) RARE /LPF 04/17/19 16:00 Urine Ascorbic Acid 40 (NEGATIVE) H 04/17/19 16:00 Stool Occult Blood POSITIVE (NEGATIVE) 04/18/19 16:22 04/17/19 15:55 CK-MB (CK-2) 3.49 Troponin I 0.133 Impressions: Chest X-Ray 04/17/19 16:35 IMPRESSION: No acute findings Head CT 04/17/19 16:36 IMPRESSION: MICROVASCULAR ISCHEMIA AND GENERALIZED ATROPHY. NO ACUTE IMAGING FINDINGS IN THE BRAIN EVIDENCE OF ACUTE STROKE: NO. Plan Time Spent: Greater than 30 Minutes Stroke Is this a Stroke Patient?: No Acute Heart Failure - Is this a Heart Failure Patient?: No
[2019-04-22 15:23] VITALS: BP 117/41
== END 2019-04-22 16:17 | DRG 640 ==
LOC: ER 15:34 → EH 17:58 → 3S 21:22
PROVIDERS: ADMIT Internal Medicine; ATTEND Internal Medicine
DX: E87.0 Hyperosmolality and hypernatremia (principal); G93.41 Metabolic encephalopathy; N17.9 Acute kidney failure, unspecified; N30.01 Acute cystitis with hematuria; F03.91 Unspecified dementia, unspecified severity, with behavioral disturbance; F31.9 Bipolar disorder, unspecified; F20.9 Schizophrenia, unspecified; E86.0 Dehydration; D64.9 Anemia, unspecified; E11.22 Type 2 diabetes mellitus with diabetic chronic kidney disease; I12.9 Hypertensive chronic kidney disease with stage 1 through stage 4 chronic kidney disease, or unspecified chronic kidney disease; N18.9 Chronic kidney disease, unspecified; Z85.51 Personal history of malignant neoplasm of bladder; Z79.4 Long term (current) use of insulin; Z66 Do not resuscitate; Z79.899 Other long term (current) drug therapy
CPT/HCPCS: 36415; 70450; 71045; 80048; 80053; 80061; 81001; 82272; 82533; 82550; 82553; 82962; 83036; 83605; 83735; 83930; 84439; 84443; 84481; 84484; 85025; 87040; 87070; 87086; 93005; 93010; 96365; 99291; J0696; J1644; J1815; J2060; J7030; J7060

== ENCOUNTER 2019-05-08 15:38 | Inpatient (IN) | payer MEDICARE ==
[2019-05-08 16:47] LABS: ALBUMIN 2.6 g/dL (3.5-5.0); ALKALINE PHOSPHATASE 60 U/L (38-126); ANION GAP 9 (5-19); ASPARTATE AMINO TRANSFERASE 22 U/L (17-59); BILIRUBIN,DIRECT 0.2 mg/dL (0.0-0.4); BILIRUBIN,TOTAL 0.6 mg/dL (0.2-1.3); BLOOD UREA NITROGEN 79 mg/dL (7-20); CALCIUM 8.2 mg/dL (8.4-10.2); CARBON DIOXIDE 21 mmol/L (22-30); CHLORIDE 111 mmol/L (98-107); GLUCOSE 201 mg/dL (75-110); POTASSIUM 4.9 mmol/L (3.6-5.0); TOTAL PROTEIN 5.2 g/dL (6.3-8.2)
[2019-05-08 16:49] LABS: ALCOHOL < 10 mg/dL (NONE DETECTED)
[2019-05-08 16:51] LABS: ABSOLUTE BASOPHILS # (AUTO) 0.2 10^3/uL (0.0-0.2); ABSOLUTE LYMPHOCYTES (AUTO) 1.1 10^3/uL (0.5-4.7); ABSOLUTE MONOCYTES (AUTO) 0.7 10^3/uL (0.1-1.4); ABSOLUTE NEUT (AUTO) 10.7 10^3/uL (1.7-8.2); BASOPHILS % (AUTO) 1.7 % (0-2); EOSINOPHILS % (AUTO) 0.3 % (0-6); LYMPHOCYTES % (AUTO) 8.9 % (13-45); MEAN CORPUSCULAR HEMOGLOBIN 34.2 pg (27.0-33.4); MEAN CORPUSCULAR HGB CONC 32.9 g/dL (32.0-36.0); MEAN CORPUSCULAR VOLUME 104 fl (80-97); MONOCYTES % (AUTO) 5.3 % (3-13); PLATELET COUNT 161 10^3/uL (150-450); RED BLOOD COUNT 1.33 10^6/uL (4.35-5.55); RED CELL DISTRIBUTION WIDTH 24.2 % (11.5-14.0); SEGMENTED NEUTROPHILS % (AUTO) 83.8 % (42-78); TOTAL CELLS COUNTED % (AUTO) 100 %; WHITE BLOOD COUNT 12.7 10^3/uL (4.0-10.5)
[2019-05-08] MEDS ORDERED: NORMAL SALINE 250 ML IV PRN ×2 (17:05)
[2019-05-08 17:13] LABS: HEMATOCRIT 13.8 % (37.9-51.0)
[2019-05-08 17:28] LABS: ANISOCYTOSIS 3+; HYPOCHROMASIA 2+; POLYCHROMASIA SLIGHT; TARGET CELLS SLIGHT
[2019-05-08 17:31] LABS: HEMOGLOBIN 4.5 g/dL (13.5-17.0)
[2019-05-08 17:33] LABS: PLATELET COMMENT ADEQUATE
--- NOTE | 2019-05-08 17:57 | RADIOLOGY REPORT (SQ) ---
EXAM DESCRIPTION: KUB/ABDOMEN (SINGLE VIEW) COMPLETED DATE/TIME: 05/08/2019 5:33 pm REASON FOR STUDY: gi bleed COMPARISON: None. NUMBER OF VIEWS: One view. TECHNIQUE: Supine radiographic image of the abdomen acquired. LIMITATIONS: None. FINDINGS: BOWEL GAS PATTERN: Normal bowel gas pattern. No dilated loops. CALCIFICATIONS: No suspicious calcifications. SOFT TISSUES: No gross mass or suggestion of organomegaly. HARDWARE: None in the abdomen. BONES: No acute fracture. No worrisome bone lesions. OTHER: No other significant finding. IMPRESSION: NO RADIOGRAPHIC EVIDENCE FOR ACUTE ABDOMINAL DISEASE. TECHNICAL DOCUMENTATION: JOB ID: [id number] 2010 [employer]- All Rights Reserved Reading location - IP/workstation name: [email or web address]
--- NOTE | 2019-05-08 17:57 | ER Document Report ---
ED General - General Chief Complaint: GI Bleeding Stated Complaint: AMS Time Seen by Provider: 05/08/19 17:03 Primary Care Provider: TAYLER PATEL MD [Primary Care Provider] - Follow up as needed Mode of Arrival: Medic Cannot obtain history due to: Dementia, Unstable vital signs Notes: 84-year-old male arrives from [facility] after it wa s noticed he had blood in his rectal area 24 hours ago. It was again noticed today with GI bleed. Patient has a history of GI bleed and was recently here last month with blood transfusion. His daughter Avel advises that he has had at least 5 blood transfusions. I spoke with her at telephone [phone] and she reports her Aric will come into see the patient over the next few hours. She is out of town at the time. By her history he is usually nonverbal but [place] but [place] does speak [place] in his [place] language and Crystal SMITH has noticed that he will sometimes revert to on Tr and. Avel advises that he usually does not understand anything but often times will say yes to what ever a question is asked of him. She advises no extreme measures. She does not think he will survive anything except for blood transfusion. He has a history of bladder cancer and was on hospice for a year and a half but for the last 7 1/2 years has been at [facility]. This patient had a blood pressure of 107/77 but initially had a blood pressure of 86/ 60 which increased after LR and also patient has 2 IVs each and a forearm. TRAVEL OUTSIDE OF THE [place] IN LAST 30 DAYS: No - HPI Onset: This morning Onset/Duration: Sudden, Persistent Quality of pain: No pain Severity: None Associated symptoms: Weakness Exacerbated by: Denies Relieved by: Denies Similar symptoms previously: Yes Recently seen / treated by doctor: Yes - Related Data Allergies/Adverse Reactions: No Known Allergies Allergy (Verified 05/08/19 17:24) Past Medical History - General Information source: Emergency Med Personnel Cannot obtain history due to: Dementia - Social History Smoking Status: Unknown if Ever Smoked Cigarette use (# per day): No Chew tobacco use (# tins/day): No Smoking Education Provided: No Frequency of alcohol use: None Drug Abuse: None Lives with: [facility] Family History: Reviewed & Not Pertinent Patient has suicidal ideation: No Patient has homicidal ideation: No - Past Medical History Cardiac Medical History: Reports: Hx Hypertension Endocrine Medical History: Reports: Hx Diabetes Mellitus Type 2 Renal/ Medical History: Denies: Hx Peritoneal Dialysis Psychiatric Medical History: Reports: Hx Bipolar Disorder, Hx Dementia, Hx Schizophrenia Review of Systems - Review of Systems Constitutional: See HPI, Malaise, Weakness EENT: See HPI, Other - pale eyes Cardiovascular: No symptoms reported Respiratory: No symptoms reported Gastrointestinal: See HPI, Black stools, Rectal bleeding, Last bowel movement - Currently with black stools that areguaiac positive, Fecal incontinence Genitourinary: No symptoms reported Male Genitourinary: No symptoms reported Musculoskeletal: No symptoms reported Skin: No symptoms reported Hematologic/Lymphatic: No symptoms reported Neurological/Psychological: No symptoms reported Physical Exam - Vital signs Vitals: Resp 05/08/19 15:52 Interpretation: Hypotensive - General General appearance: Lethargic - But easily awakened - HEENT Head: Normocephalic Eyes: Pale conjunctiva Conjunctiva: Normal Cornea: Normal Extraocular movements intact: Yes Eyelashes: Normal Pupils: PERRL Sinus: Normal Nasal: Normal Mucous membranes: Dry Pharynx: Normal Neck: Normal - Respiratory Respiratory status: No respiratory distress Chest status: Nontender Breath sounds: Normal Chest palpation: Normal - Cardiovascular Rhythm: Regular Heart sounds: Normal auscultation Murmur: No Friction rub: No Richard's crunch: No - Abdominal Inspection: Normal Distension: No distension Bowel sounds: Hyperactive Tenderness: Nontender Organomegaly: No organomegaly - Rectal Tenderness: No Stool: Heme positive, Black Hemorrhoids: None - Genitourinary Tenderness: Nontender Scrotum: Normal - Back Back: Normal - Extremities General upper extremity: Normal inspection General lower extremity: Normal inspection - Neurological Neuro grossly intact: No Cognition: Confused Orientation: Disoriented to person, Disoriented to place, Disoriented to time, Disoriented to events [place] Coma Scale Eye Opening: To Voice [place] Coma Scale Verbal: Incomprehensible [place] Coma Scale Motor: Obeys Commands [place] Coma Scale Total: 11 Speech: Other - Says yes to most questions Cranial nerves: Other - Unable to assess because of Alzheimer's Motor strength normal: LUE, RUE, LLE, RLE Course - Vital Signs Vital signs: Temp Pulse Resp BP Pulse Ox 18 82/41 L 100 05/08/19 16:10 05/08/19 16:10 05/08/19 16:32 - Laboratory Result Diagrams: 05/08/19 15:25 05/08/19 15:25 Laboratory results interpreted by me: 05/08/19 05/08/19 05/08/19 15:25 15:25 16:15 WBC 12.7 H RBC 1.33 L Hgb 4.5 L* Hct 13.8 L* MCV 104 H MCH 34.2 H RDW 24.2 H Lymph % (Auto) 8.9 L Absolute Neuts (auto) 10.7 H Seg Neutrophils % 83.8 H Chloride 111 H Carbon Dioxide 21 L BUN 79 H Creatinine 2.35 H Est GFR ( Amer) 32 L Est GFR (MDRD) Non-Af 26 L Glucose 201 H Lactic Acid 4.5 H Calcium 8.2 L Total Protein 5.2 L Albumin 2.6 L Crossmatch 05/08/19 16:15 WBC RBC Hgb Hct MCV MCH RDW Lymph % (Auto) Absolute Neuts (auto) Seg Neutrophils % Chloride Carbon Dioxide BUN Creatinine Est GFR ( Amer) Est GFR (MDRD) Non-Af Glucose Lactic Acid Calcium Total Protein Albumin Crossmatch See Detail - Diagnostic Test Radiology reviewed: Reports reviewed - EKG Interpretation by Me EKG shows normal: Sinus rhythm Rate: Tachycardia Rhythm: NSR Critical Care Note - Critical Care Note Total time excluding time spent on procedures (mins): 90 Comments: This case was discussed with hospitalist for admission Discharge - Discharge Clinical Impression: Dementia Qualifiers: Dementia type: Alzheimer's disease Alzheimer's disease onset: unspecified onset Dementia behavioral disturbance: with behavioral disturbance Qualified Code(s): G30.9 - Alzheimer's disease, unspecified; F02.81 - Dementia in other diseases classified elsewhere with behavioral disturbance Condition: Fair Disposition: ADMITTED INPATIENT Unit Admitted: Telemetry Referrals: TAYLER PATEL MD [Primary Care Provider] - Follow up as needed
--- NOTE | 2019-05-08 18:40 | PDOC H&P ---
History of Present Illness Admission Date/PCP: TAYLER PATEL MD History of Present Illness: SHAUN PEDRAZA is a 84 year old male male with severe dementia who was recently discharged from this facility during which time he had some electrolyte disturbances that were corrected. He was noted to have blood but like blood in his brief when they changed to [employer] today and so he was sent over to the hospital. His hemoglobin was in the mid sevens when he was discharged recen tly, and was down to 4.5 in the ER. His daughter Calli who is his power of assistant city attorney was contacted and reaffirmed that he is a DNR and that he would not want any sort of aggressive work-up. She requested that we just try to give him some blood and see if his bleeding stops and then at that point [facility]. Apparently he moved here in the 1960s from [facility] and previously spoke some Singaporean but as his dementia has progressed he has reverted to his mother tongue and does not really respond normally now. Past Medical History Cardiac Medical History: Reports: Hypertension Endocrine Medical History: Reports: Diabetes Mellitus Type 2 Psychiatric Medical History: Reports: Bipolar Disorder, Dementia Hematology: Reports: Anemia Social History Lives with: [facility] Smoking Status: Unknown if Ever Smoked Frequency of Alcohol Use: None Hx Recreational Drug Use: No Drugs: None Hx Prescription Drug Abuse: No Family History Family History: Reviewed & Not Pertinent Parental Family History Reviewed: No - Unable to obtain Children Family History Reviewed: No - Unable to obtain Sibling(s) Family History Reviewed.: No - Unable to obtain Medication/Allergy Home Medications: Acetaminophen [Tylenol] 650 mg PO Q4HP PRN 03/23/19 Ascorbic Acid [Vitamin C 500 mg Tablet] 500 mg PO BID 03/23/19 Buspirone HCl [Buspar 10 mg Tablet] 10 mg PO QHS 03/23/19 Buspirone HCl [Buspar 5 mg Tablet] 5 mg PO QAM 03/23/19 Calcium Carbonate [Calcium] 500 mg PO DAILY 03/23/19 Citalopram Hydrobromide [Celexa 20 mg Tablet] 20 mg PO QHS 03/23/19 Donepezil HCl [Aricept] 10 mg PO QHS 03/23/19 Ferrous Sulfate [Feosol 325 mg Tablet] 325 mg PO BID 03/23/19 Guaifenesin [Tussin] 10 ml PO Q4HP PRN 03/23/19 Insulin Glargine,Hum.rec.anlog [Lantus Insulin 100 Unit/1 ml 10 ml] 13 unit SUBCUT QHS 03/23/19 Lorazepam [Ativan 0.5 mg Tablet] 0.5 mg PO Q8HP PRN 03/23/19 Lorazepam [Ativan Inj 2 mg/1 ml Vial] 1 mg IM Q8HP PRN 03/23/19 Memantine HCl [Namenda] 5 mg PO BID 03/23/19 Multivitamin [Daily Multiple Vitamin] 1 each PO DAILY 03/23/19 Allergies/Adverse Reactions: No Known Allergies Allergy (Verified 05/08/19 17:24) Review of Systems ROS unobtainable: Due to mental status Physical Exam Vital Signs: Temp Pulse Resp BP Pulse Ox 97.6 F 80 13 89/44 L 100 05/08/19 18:10 05/08/19 18:10 05/08/19 18:10 05/08/19 18:10 05/08/19 18:10 Intake & Output 05/07/19 05/08/19 05/09/19 06:59 06:59 06:59 Intake Total 0 Balance 0 Weight 66.6 kg General appearance: PRESENT: no acute distress, disheveled. ABSENT: cooperative Head exam: PRESENT: atraumatic, normocephalic Eye exam: PRESENT: EOMI. ABSENT: nystagmus, scleral icterus Ear exam: PRESENT: normal external ear exam Mouth exam: PRESENT: dry mucosa Teeth exam: PRESENT: poor dentation Neck exam: ABSENT: carotid bruit, JVD, tenderness Respiratory exam: PRESENT: clear to auscultation pam, symmetrical, unlabored. ABSENT: accessory muscle use, crackles, prolonged expiratory phas, retraction, rhonchi, tachypnea, wheezes Cardiovascular exam: PRESENT: RRR Pulses: PRESENT: normal carotid pulses Vascular exam: PRESENT: pallor GI/Abdominal exam: PRESENT: normal bowel sounds, soft. ABSENT: distended, guarding, rebound, tenderness Extremities exam: ABSENT: clubbing, pedal edema Musculoskeletal exam: PRESENT: normal inspection. ABSENT: deformity Neurological exam: PRESENT: awake, other - Opens eyes spontaneously, localizes the sound, moves his head and extremities spontaneously, does not follow commands Skin exam: PRESENT: dry, pallor, warm Results Laboratory Results: 05/08/19 15:25 05/08/19 15:25 05/08/19 05/08/19 05/08/19 15:25 15:25 16:15 WBC 12.7 H RBC 1.33 L Hgb 4.5 L* Hct 13.8 L* MCV 104 H MCH 34.2 H MCHC 32.9 RDW 24.2 H Plt Count 161 Seg Neutrophils % 83.8 H Sodium 141.4 Potassium 4.9 Chloride 111 H Carbon Dioxide 21 L Anion Gap 9 BUN 79 H Creatinine 2.35 H Est GFR ( Amer) 32 L Glucose 201 H Lactic Acid 4.5 H Calcium 8.2 L Magnesium 2.1 Total Bilirubin 0.6 AST 22 Alkaline Phosphatase 60 Total Protein 5.2 L Albumin 2.6 L Blood Type Antibody Screen 05/08/19 16:15 WBC RBC Hgb Hct MCV MCH MCHC RDW Plt Count Seg Neutrophils % Sodium Potassium Chloride Carbon Dioxide Anion Gap BUN Creatinine Est GFR ( Amer) Glucose Lactic Acid Calcium Magnesium Total Bilirubin AST Alkaline Phosphatase Total Protein Albumin Blood Type B POSITIVE Antibody Screen NEGATIVE Impressions: KUB X-Ray 05/08/19 17:09 IMPRESSION: NO RADIOGRAPHIC EVIDENCE FOR ACUTE ABDOMINAL DISEASE. Assessment and Plan - Diagnosis (1) Upper GI bleed Is this a current diagnosis for this admission?: Yes Plan: His daughter does not want anything aggressive done. We will put him on some twice daily IV Protonix. We will monitor his CBC every 6 hours to see if he needs repeat transfusions. (2) Acute blood loss anemia Is this a current diagnosis for this admission?: Yes Plan: 2 units of packed red blood cells have been ordered. Anticipate that he will need more. Were checking his hemoglobin every 6 hours to see if he will need repeat transfusions. (3) Dementia Qualifiers: Dementia type: Alzheimer's disease Alzheimer's disease onset: unspecified onset Dementia behavioral disturbance: with behavioral disturbance Qualified Code(s): G30.9 - Alzheimer's disease, unspecified; F02.81 - Dementia in other diseases classified elsewhere with behavioral disturbance Is this a current diagnosis for this admission?: Yes Plan: We will try to get him on his home medications and leave him alone as much as possible because apparently he can get agitated fairly easily. - Time Time Spent with patient: 35 or more minutes - Inpatient Certification Based on my medical assessment, after consideration of the patient's comorbidities, presenting symptoms, or acuity I expect that the services needed warrant INPATIENT care.: Yes I certify that my determination is in accordance with my understanding of Medicare's requirements for reasonable and necessary INPATIENT services [42 CFR 412.3e].: Yes Medical Necessity: Significant Comorbidiites Make Outpatient Treatment Too Risky, Need Close Monitoring Due to Risk of Patient Decompensation, Need For Continuous Telemetry Monitoring, Risk of Complication if Not Cared For in Hospital
--- NOTE | 2019-05-08 21:19 | EKG REPORT ---
SEVERITY:- ABNORMAL ECG - SINUS RHYTHM FIRST DEGREE AV BLOCK : Confirmed by: Rodolfo Centeno 08-May-2019 21:18:59
[2019-05-09] MEDS: PANTOPRAZOLE SODIUM 40 MG VIAL IV SCH ×3 (00:50→22:27)
[2019-05-09 02:07] LABS: HEMATOCRIT 21.1 % (37.9-51.0); MEAN CORPUSCULAR HEMOGLOBIN 29.8 pg (27.0-33.4); PLATELET COUNT 126 10^3/uL (150-450); RED BLOOD COUNT 2.34 10^6/uL (4.35-5.55); RED CELL DISTRIBUTION WIDTH 22.7 % (11.5-14.0); WHITE BLOOD COUNT 12.8 10^3/uL (4.0-10.5)
[2019-05-09 02:14] LABS: MEAN CORPUSCULAR VOLUME 90 fl (80-97)
[2019-05-09 03:22] LABS: HEMATOCRIT 20.4 % (37.9-51.0); MEAN CORPUSCULAR HEMOGLOBIN 29.7 pg (27.0-33.4); MEAN CORPUSCULAR VOLUME 90 fl (80-97); PLATELET COUNT 124 10^3/uL (150-450); RED BLOOD COUNT 2.27 10^6/uL (4.35-5.55); RED CELL DISTRIBUTION WIDTH 23.1 % (11.5-14.0); WHITE BLOOD COUNT 11.3 10^3/uL (4.0-10.5)
[2019-05-09 03:26] LABS: HEMOGLOBIN 6.7 g/dL (13.5-17.0)
--- NOTE | 2019-05-09 05:45 | Progress Note ---
Provider Note Provider Note: Critical care note: 05/09/2019 Critical care onset time: 02:11 Critical care issue: Hemoglobin of 7.0 in a patient with an active lower GI bleed Patient was seen at the request of his nurse because his hemoglobin was 7.0 after receiving 2 units of packed red blood cells with an ongoing active GI bleed. I discussed the results with the nurse and because of the patient's dementia he was not included in discussion in terms of decision-making. On exam patient's chest was clear to auscultation with unlabored respirations bilaterally. Heart showed a regular rate and rhythm without murmurs. Abdomen is soft and nontender, with hypoactive bowel sounds present in all 4 quadrants. Extremities showed no cyanosis or edema. It was elected after discussion to provide the patient with an additional unit of packed red blood cells and recheck his hemoglobin 2 hours after that administration has been completed. Critical care end time: 05:44 Total critical care time: 16 minutes
[2019-05-09 09:08] LABS: HEMATOCRIT 24.9 % (37.9-51.0); HEMOGLOBIN 8.2 g/dL (13.5-17.0); MEAN CORPUSCULAR HEMOGLOBIN 30.3 pg (27.0-33.4); MEAN CORPUSCULAR HGB CONC 33.1 g/dL (32.0-36.0); MEAN CORPUSCULAR VOLUME 92 fl (80-97); PLATELET COUNT 133 10^3/uL (150-450); RED BLOOD COUNT 2.72 10^6/uL (4.35-5.55); RED CELL DISTRIBUTION WIDTH 21.7 % (11.5-14.0); WHITE BLOOD COUNT 10.2 10^3/uL (4.0-10.5)
[2019-05-09 11:02] LABS: PATH REVIEW PATHOLOGIST REVIEWED
[2019-05-09 13:00] LABS: HEMATOCRIT 21.9 % (37.9-51.0); MEAN CORPUSCULAR HEMOGLOBIN 30.9 pg (27.0-33.4); MEAN CORPUSCULAR HGB CONC 33.9 g/dL (32.0-36.0); MEAN CORPUSCULAR VOLUME 91 fl (80-97); PLATELET COUNT 127 10^3/uL (150-450); RED CELL DISTRIBUTION WIDTH 21.7 % (11.5-14.0); WHITE BLOOD COUNT 8.6 10^3/uL (4.0-10.5)
[2019-05-09 13:15] LABS: HEMOGLOBIN 7.4 g/dL (13.5-17.0)
--- NOTE | 2019-05-09 16:06 | PDOC PROGRESS REPORT ---
Subjective Progress Note for:: 05/09/19 Subjective:: No adverse events overnight. No new complaints. He got another unit of packed red cells overnight because, as expected, his hemoglobin was still low. He keeps pulling off his telemetry leads so we have just decided to keep him off. Reason For Visit: BLOOD LOSS ANEMIA, UPPER GI BLEED Physical Exam Vital Signs: Temp Pulse Resp BP Pulse Ox 97.3 F 64 18 115/82 99 05/09/19 11:53 05/09/19 11:53 05/09/19 11:53 05/09/19 11:53 05/09/19 11:53 Intake & Output 05/08/19 05/09/19 05/10/19 06:59 06:59 06:59 Intake Total 975 860 Balance 975 860 Weight 48.4 kg 48.4 kg General appearance: PRESENT: no acute distress, disheveled. ABSENT: cooperative Respiratory exam: PRESENT: clear to auscultation pam, symmetrical, unlabored. ABSENT: accessory muscle use, crackles, prolonged expiratory phas, retraction, rhonchi, tachypnea, wheezes Cardiovascular exam: PRESENT: RRR Pulses: PRESENT: normal carotid pulses Vascular exam: PRESENT: pallor GI/Abdominal exam: PRESENT: normal bowel sounds, soft. ABSENT: distended, guarding, rebound, tenderness Extremities exam: ABSENT: clubbing, pedal edema Musculoskeletal exam: PRESENT: normal inspection. ABSENT: deformity Neurological exam: PRESENT: awake, other - Opens eyes spontaneously, localizes the sound, moves his head and extremities spontaneously, does not follow commands Skin exam: PRESENT: dry, pallor, warm Results Laboratory Results: 05/09/19 12:32 05/08/19 15:25 05/08/19 05/08/19 05/08/19 15:25 15:25 16:15 WBC 12.7 H RBC 1.33 L Hgb 4.5 L* Hct 13.8 L* MCV 104 H MCH 34.2 H MCHC 32.9 RDW 24.2 H Plt Count 161 Seg Neutrophils % 83.8 H Sodium 141.4 Potassium 4.9 Chloride 111 H Carbon Dioxide 21 L Anion Gap 9 BUN 79 H Creatinine 2.35 H Est GFR ( Amer) 32 L Glucose 201 H Lactic Acid 4.5 H Calcium 8.2 L Magnesium 2.1 Total Bilirubin 0.6 AST 22 Alkaline Phosphatase 60 Total Protein 5.2 L Albumin 2.6 L Blood Type Antibody Screen 05/08/19 05/08/19 05/09/19 16:15 23:25 01:22 WBC 12.8 H RBC 2.34 L Hgb 7.0 L D Hct 21.1 L MCV 90 D MCH 29.8 MCHC 33.0 RDW 22.7 H Plt Count 126 L Seg Neutrophils % Sodium Potassium Chloride Carbon Dioxide Anion Gap BUN Creatinine Est GFR ( Amer) Glucose Lactic Acid 1.3 Calcium Magnesium Total Bilirubin AST Alkaline Phosphatase Total Protein Albumin Blood Type B POSITIVE Antibody Screen NEGATIVE 05/09/19 05/09/19 05/09/19 02:56 08:40 12:32 WBC 11.3 H 10.2 8.6 RBC 2.27 L 2.72 L 2.40 L Hgb 6.7 L 8.2 L 7.4 L Hct 20.4 L 24.9 L 21.9 L MCV 90 92 91 MCH 29.7 30.3 30.9 MCHC 33.0 33.1 33.9 RDW 23.1 H 21.7 H 21.7 H Plt Count 124 L 133 L 127 L Seg Neutrophils % Sodium Potassium Chloride Carbon Dioxide Anion Gap BUN Creatinine Est GFR ( Amer) Glucose Lactic Acid Calcium Magnesium Total Bilirubin AST Alkaline Phosphatase Total Protein Albumin Blood Type Antibody Screen Impressions: KUB X-Ray 05/08/19 17:09 IMPRESSION: NO RADIOGRAPHIC EVIDENCE FOR ACUTE ABDOMINAL DISEASE. Assessment and Plan - Diagnosis (1) Upper GI bleed Is this a current diagnosis for this admission?: Yes Plan: His daughter does not want anything aggressive done. We put him on some twice daily IV Protonix. We will monitor him for further bleeding to assess for the need for repeat transfusions. (2) Acute blood loss anemia Is this a current diagnosis for this admission?: Yes Plan: He is received 3 units of packed red cells for, will monitor for the need for repeat transfusions (3) Dementia Qualifiers: Dementia type: Alzheimer's disease Alzheimer's disease onset: unspecified onset Dementia behavioral disturbance: with behavioral disturbance Qualified Code(s): G30.9 - Alzheimer's disease, unspecified; F02.81 - Dementia in other diseases classified elsewhere with behavioral disturbance Is this a current diagnosis for this admission?: Yes Plan: At baseline - Time Time Spent with patient: 15-24 minutes
[2019-05-10] MEDS: PANTOPRAZOLE SODIUM 40 MG VIAL IV SCH ×2 (10:33→22:37)
[2019-05-10 11:27] LABS: HEMATOCRIT 22.9 % (37.9-51.0); MEAN CORPUSCULAR HEMOGLOBIN 30.5 pg (27.0-33.4); MEAN CORPUSCULAR HGB CONC 33.2 g/dL (32.0-36.0); MEAN CORPUSCULAR VOLUME 92 fl (80-97); PLATELET COUNT 134 10^3/uL (150-450); RED BLOOD COUNT 2.49 10^6/uL (4.35-5.55); RED CELL DISTRIBUTION WIDTH 22.4 % (11.5-14.0); WHITE BLOOD COUNT 7.2 10^3/uL (4.0-10.5)
[2019-05-10 11:31] LABS: HEMOGLOBIN 7.6 g/dL (13.5-17.0)
--- NOTE | 2019-05-10 13:43 | PDOC PROGRESS REPORT ---
Subjective Progress Note for:: 05/10/19 Subjective:: No adverse events overnight. No new complaints. No reports of any bloody bowel movements last night. He is pretty calm as long as he is left alone. Reason For Visit: BLOOD LOSS ANEMIA, UPPER GI BLEED Physical Exam Vital Signs: Temp Pulse Resp BP Pulse Ox 97.7 F 62 20 139/46 H 97 05/10/19 11:43 05/10/19 11:43 05/10/19 11:43 05/10/19 11:43 05/10/19 11:43 Intake & Output 05/09/19 05/10/19 05/11/19 06:59 06:59 06:59 Intake Total 975 1120 0 Balance 975 1120 0 Weight 48.4 kg 46.8 kg General appearance: PRESENT: no acute distress, disheveled. ABSENT: cooperative Respiratory exam: PRESENT: clear to auscultation pam, symmetrical, unlabored. ABSENT: accessory muscle use, crackles, prolonged expiratory phas, retraction, rhonchi, tachypnea, wheezes Cardiovascular exam: PRESENT: RRR Pulses: PRESENT: normal carotid pulses Vascular exam: PRESENT: pallor GI/Abdominal exam: PRESENT: normal bowel sounds, soft. ABSENT: distended, guarding, rebound, tenderness Extremities exam: ABSENT: clubbing, pedal edema Musculoskeletal exam: PRESENT: normal inspection. ABSENT: deformity Neurological exam: PRESENT: awake, other - Opens eyes spontaneously, localizes the sound, moves his head and extremities spontaneously, does not follow commands Skin exam: PRESENT: dry, pallor, warm Results Laboratory Results: 05/10/19 11:04 05/08/19 15:25 05/10/19 11:04 WBC 7.2 RBC 2.49 L Hgb 7.6 L Hct 22.9 L MCV 92 MCH 30.5 MCHC 33.2 RDW 22.4 H Plt Count 134 L Impressions: KUB X-Ray 05/08/19 17:09 IMPRESSION: NO RADIOGRAPHIC EVIDENCE FOR ACUTE ABDOMINAL DISEASE. Assessment and Plan - Diagnosis (1) Upper GI bleed Is this a current diagnosis for this admission?: Yes Plan: His daughter does not want anything aggressive done. We put him on some twice daily IV Protonix. We will monitor him for further bleeding to assess for the need for repeat transfusions. Hemoglobin is stable from yesterday. If it is stable overnight we can send him back to the [facility] tomorrow. (2) Acute blood loss anemia Is this a current diagnosis for this admission?: Yes Plan: He is received 3 units of packed red cells so far, will monitor for the need for repeat transfusions (3) Dementia Qualifiers: Dementia type: Alzheimer's disease Alzheimer's disease onset: unspecified onset Dementia behavioral disturbance: with behavioral disturbance Qualified Code(s): G30.9 - Alzheimer's disease, unspecified; F02.81 - Dementia in other diseases classified elsewhere with behavioral disturbance Is this a current diagnosis for this admission?: Yes Plan: At baseline - Time Time Spent with patient: 15-24 minutes
[2019-05-10] MEDS: LORAZEPAM INJ 2 MG/1 ML VIAL IV PRN (17:02)
[2019-05-11] MEDS: PANTOPRAZOLE SODIUM 40 MG VIAL IV SCH (09:42)
[2019-05-11 12:05] VITALS: BP 122/97
--- NOTE | 2019-05-11 12:45 | PDOC TRANSFER SUMMARY ---
Impression - Admit/DC Date/PCP Admission Date/Primary Care Provider: 05/08/19 19:22 TAYLER PATEL MD Discharge Date: 05/11/19 - Discharge Diagnosis (1) Upper GI bleed Is this a current diagnosis for this admission?: Yes (2) Acute blood loss anemia Is this a current diagnosis for this admission?: Yes (3) Dementia Is this a current diagnosis for this admission?: Yes - Additional Information Resuscitation Status: Do Not Resuscitate Discharge Diet: Diabetic Discharge Activity: Supervised Activity Referrals: [facility] [Outside] Prescriptions: Pantoprazole Sodium [Protonix [address] Tablet] 40 mg PO QAMPM #60 tablet.dr Home Medications: Acetaminophen [Tylenol] 650 mg PO Q4HP PRN 03/23/19 Buspirone HCl [Buspar 10 mg Tablet] 10 mg PO QHS 03/23/19 Buspirone HCl [Buspar 5 mg Tablet] 5 mg PO QAM 03/23/19 Calcium Carbonate [Calcium] 500 mg PO DAILY 03/23/19 Citalopram Hydrobromide [Celexa 20 mg Tablet] 20 mg PO QHS 03/23/19 Donepezil HCl [Aricept] 10 mg PO QHS 03/23/19 Ferrous Sulfate [Feosol 325 mg Tablet] 325 mg PO BID 03/23/19 Guaifenesin [Tussin] 10 ml PO Q4HP PRN 03/23/19 Insulin Glargine,Hum.rec.anlog [Lantus Insulin 100 Unit/1 ml 10 ml] 13 unit SUBCUT QHS 03/23/19 Lorazepam [Ativan 0.5 mg Tablet] 0.5 mg PO Q8HP PRN 03/23/19 Lorazepam [Ativan Inj 2 mg/1 ml Vial] 1 mg IM Q8HP PRN 03/23/19 Memantine HCl [Namenda] 5 mg PO Q12 03/23/19 Multivitamin [Tab-A-Bassam (Multiple Vitamin) Tablet] 1 tab PO DAILY 05/08/19 Pantoprazole Sodium [Protonix [address] Tablet] 40 mg PO QAMPM #60 tablet. 05/11/19 History of Present Illiness History of Present Illness: SHAUN PEDRAZA is a 84 year old male male with severe dementia who was recently discharged from this facility during which time he had some electrolyte disturbances that were corrected. He was noted to have blood but like blood in his brief when they changed to [facility] today and so he was sent over to the hospital. His hemoglobin was in the mid sevens when he was discharged recently, and was down to 4.5 in the ER. His daughter Calli who is his power of estate planning attorney was contacted and reaffirmed that he is a DNR and that he would not want any sort of aggressive work-up. She requested that we just try to give him some blood and see if his bleeding stops and then at that point send him back to the snf. Apparently he moved here in the 1960s from [facility] and previously spoke some [place] but as his dementia has progressed he has reverted to his mother tongue and does not really respond normally now. Hospital Course Hospital Course: His daughter did not want anything aggressive to be done and she asked that we just give him some blood and monitor him in the hopes that he would stop bleeding because she did not want any endoscopic evaluation. Fortunately he is not showing any signs of any further blood loss and his blood counts have elias ined stable. His oral intake has been erratic, and he does not really like anybody to mess with him too much. When he is left alone he is pretty pleasant. He has not shown any signs of any blood loss for the last couple of days. He will resume his home medications. The description of the blood was seen in his diaper was very dark and so considering that this might be an upper GI bleed we have elected to put him on Protonix twice a day for 3 months. Also recommended that his vitamin C be discontinued during that time. His labs and exam were reassuring and he was discharged in stable condition Physical Exam Vital Signs: Temp Pulse Resp BP Pulse Ox 97.4 F 58 L 20 122/97 H 98 05/11/19 07:35 05/11/19 11:29 05/11/19 11:29 05/11/19 11:29 05/11/19 11:29 Intake & Output 05/10/19 05/11/19 05/12/19 06:59 06:59 06:59 Intake Total 1120 360 Balance 1120 360 Weight 46.8 kg 46 kg General appearance: PRESENT: no acute distress, disheveled. ABSENT: cooperative Respiratory exam: PRESENT: clear to auscultation pam, symmetrical, unlabored. ABSENT: accessory muscle use, crackles, prolonged expiratory phas, retraction, rhonchi, tachypnea, wheezes Cardiovascular exam: PRESENT: RRR Pulses: PRESENT: normal carotid pulses Vascular exam: PRESENT: pallor GI/Abdominal exam: PRESENT: normal bowel sounds, soft. ABSENT: distended, guarding, rebound, tenderness Extremities exam: ABSENT: clubbing, pedal edema Musculoskeletal exam: PRESENT: normal inspection. ABSENT: deformity Neurological exam: PRESENT: awake, other - Opens eyes spontaneously, localizes the sound, moves his head and extremities spontaneously, does not follow commands Skin exam: PRESENT: dry, pallor, warm Results Laboratory Results: WBC 7.2 10^3/uL (4.0-10.5) 05/10/19 11:04 RBC 2.49 10^6/uL (4.35-5.55) L 05/10/19 11:04 Hgb 7.6 g/dL (13.5-17.0) L 05/10/19 11:04 Hct 22.9 % (37.9-51.0) L 05/10/19 11:04 MCV 92 fl (80-97) 05/10/19 11:04 MCH 30.5 pg (27.0-33.4) 05/10/19 11:04 MCHC 33.2 g/dL (32.0-36.0) 05/10/19 11:04 RDW 22.4 % (11.5-14.0) H 05/10/19 11:04 Plt Count 134 10^3/uL (150-450) L 05/10/19 11:04 Lymph % (Auto) 8.9 % (13-45) L 05/08/19 15:25 [place] % (Auto) 5.3 % (3-13) 05/08/19 15:25 Eos % (Auto) 0.3 % (0-6) 05/08/19 15:25 Baso % (Auto) 1.7 % (0-2) 05/08/19 15:25 Absolute Neuts (auto) 10.7 10^3/uL (1.7-8.2) H 05/08/19 15:25 Absolute Lymphs (auto) 1.1 10^3/uL (0.5-4.7) 05/08/19 15:25 Absolute Monos (auto) 0.7 10^3/uL (0.1-1.4) 05/08/19 15:25 Absolute Eos (auto) 0.0 10^3/uL (0.0-0.6) 05/08/19 15:25 Absolute Basos (auto) 0.2 10^3/uL (0.0-0.2) 05/08/19 15:25 Seg Neutrophils % 83.8 % (42-78) H 05/08/19 15:25 Platelet Comment ADEQUATE 05/08/19 15:25 Polychromasia SLIGHT 05/08/19 15:25 Hypochromasia 2+ 05/08/19 15:25 Anisocytosis 3+ 05/08/19 15:25 Macrocytosis 2+ 05/08/19 15:25 Target Cells SLIGHT 05/08/19 15:25 Sodium 141.4 mmol/L (137-145) 05/08/19 15:25 Potassium 4.9 mmol/L (3.6-5.0) 05/08/19 15:25 Chloride 111 mmol/L (98-107) H 05/08/19 15:25 Carbon Dioxide 21 mmol/L (22-30) L 05/08/19 15:25 Anion Gap 9 (5-19) 05/08/19 15:25 BUN 79 mg/dL (7-20) H 05/08/19 15:25 Creatinine 2.35 mg/dL (0.52-1.25) H 05/08/19 15:25 Est GFR ( Amer) 32 (>60) L 05/08/19 15:25 Est GFR (MDRD) Non-Af 26 (>60) L 05/08/19 15:25 Glucose 201 mg/dL (75-110) H 05/08/19 15:25 POC Glucose 156 mg/dL (70-110) H 05/09/19 05:58 Lactic Acid 1.3 mmol/L (0.7-2.1) 05/08/19 23:25 Calcium 8.2 mg/dL (8.4-10.2) L 05/08/19 15:25 Magnesium 2.1 mg/dL (1.6-2.3) 05/08/19 15:25 Total Bilirubin 0.6 mg/dL (0.2-1.3) 05/08/19 15:25 Direct Bilirubin 0.2 mg/dL (0.0-0.4) 05/08/19 15:25 Neonat Total Bilirubin Not Reportable 05/08/19 15:25 Neonat Direct Bilirubin Not Reportable 05/08/19 15:25 Neonat Indirect Bili Not Reportable 05/08/19 15:25 AST 22 U/L (17-59) 05/08/19 15:25 ALT 21 U/L (<50) 05/08/19 15:25 Alkaline Phosphatase 60 U/L (38-126) 05/08/19 15:25 Total Protein 5.2 g/dL (6.3-8.2) L 05/08/19 15:25 Albumin 2.6 g/dL (3.5-5.0) L 05/08/19 15:25 POC Stool Occult Blood POSITIVE (NEGATIVE) 05/08/19 15:54 Serum Alcohol < 10 mg/dL (NONE DETECTED) 05/08/19 15:25 Slides for Path Review PATHOLOGIST REVIEWED 05/08/19 15:25 Blood Type B POSITIVE 05/08/19 16:15 Antibody Screen NEGATIVE 05/08/19 16:15 Crossmatch See Detail 05/08/19 16:15 Impressions: KUB X-Ray 05/08/19 17:09 IMPRESSION: NO RADIOGRAPHIC EVIDENCE FOR ACUTE ABDOMINAL DISEASE. Plan Time Spent: Greater than 30 Minutes Stroke Is this a Stroke Patient?: No Acute Heart Failure - Is this a Heart Failure Patient?: No
[2019-05-11] MEDS: LORAZEPAM INJ 2 MG/1 ML VIAL IV PRN (18:14)
== END 2019-05-11 19:35 | DRG 812 ==
LOC: ER 15:38 → EH 19:22 → 4N 22:12
PROVIDERS: ADMIT Family Medicine; ATTEND Family Medicine
PROC: 30233N1 Transfusion of Nonautologous Red Blood Cells into Peripheral Vein, Percutaneous Approach (ICD-10-PCS; principal; 2019-05-08)
DX: D62 Acute posthemorrhagic anemia (principal); K62.5 Hemorrhage of anus and rectum; F02.81 Dementia in other diseases classified elsewhere, unspecified severity, with behavioral disturbance; G30.9 Alzheimer's disease, unspecified; Z66 Do not resuscitate; I10 Essential (primary) hypertension; E11.9 Type 2 diabetes mellitus without complications; F20.9 Schizophrenia, unspecified; F03.90 Unspecified dementia, unspecified severity, without behavioral disturbance, psychotic disturbance, mood disturbance, and anxiety
CPT/HCPCS: 36415; 36430; 74018; 80053; 80307; 82962; 83605; 83735; 85025; 85027; 86850; 86900; 86901; 86920; 87040; 93005; 93010; 99291; 99292; C9113; J2060; P9016